=== PATIENT | female | born 2000 | race Caucasian/White ===

== ENCOUNTER 2021-02-11 11:47 | Outpatient (REF) | payer MEDICAID, SELFPAY ==
[2021-02-12 12:59] LABS: CT PCR NOT DETECTED (Not Detect.); NG PCR NOT DETECTED (Not Detect.)
[2021-02-12 13:03] LABS: BV Int Neg Control Negative (Negative); BV Int Pos Control Positive (Positive)
== END 2021-02-11 11:48 | disposition home or self-care (01) ==
LOC: HO.LAB 11:47
PROVIDERS: Visit Provider Advanced Practice Midwife
DX: Z11.3 Encounter for screening for infections with a predominantly sexual mode of transmission (principal); N89.8 Other specified noninflammatory disorders of vagina; Z20.2 Contact with and (suspected) exposure to infections with a predominantly sexual mode of transmission
CPT/HCPCS: 87480; 87491; 87510; 87591; 87660; 99212

== ENCOUNTER 2023-09-07 15:37 | Outpatient (REF) | payer SELFPAY ==
[2023-09-08 03:40] LABS: Syphilis Screen Nonreactive (Nonreactive)
[2023-09-08 03:58] LABS: ~HepC Num1 0.16 S/CO (0.00-0.79); ~Hepatitis C Antibody Nonreactive (Nonreactive)
[2023-09-10 13:43] LABS: HIV RNA PCR Qn Copies NOT DETECTED copies/mL (NOT DETECTED); HIV RNA PCR Qn Log Copies NOT DETECTED (NOT DETECTED)
== END 2023-09-07 15:38 | disposition home or self-care (01) ==
LOC: HO.HHCL 15:37
PROVIDERS: Visit Provider Nurse Practitioner Family
DX: Z11.4 Encounter for screening for human immunodeficiency virus [HIV] (principal); Z20.2 Contact with and (suspected) exposure to infections with a predominantly sexual mode of transmission
CPT/HCPCS: 36415; 86780; 86803; 87536

== ENCOUNTER 2023-10-15 17:48 | Outpatient (REF) | payer MEDICAID, SELFPAY ==
[2023-10-16 20:03] LABS: C. trachomatis RNA TMA NOT DETECTED (NOT DETECTED); Candida glabrata RNA NOT DETECTED (NOT DETECTED); Candida species RNA NOT DETECTED (NOT DETECTED); N. gonorrhoeae RNA TMA NOT DETECTED (NOT DETECTED); Trichomonas vaginalis RNA NOT DETECTED (NOT DETECTED)
[2023-10-19 19:53] LABS: N. gonorrhoeae RNA TMA, Throat NOT DETECTED
== END 2023-10-15 17:49 | disposition home or self-care (01) ==
LOC: HO.HHCLNP 17:48
PROVIDERS: Visit Provider Emergency Medicine
DX: N89.8 Other specified noninflammatory disorders of vagina (principal); J35.8 Other chronic diseases of tonsils and adenoids
CPT/HCPCS: 36415; 81513; 87481; 87491; 87591; 87661

== ENCOUNTER 2024-05-28 12:13 | Outpatient (REF) | payer MEDICAID, SELFPAY ==
[2024-05-29 18:12] LABS: Bacterial Vaginosis PCR POSITIVE (Negative); Candida Group PCR NOT DETECTED (Not Detect); Candida glab krusei PCR NOT DETECTED (Not Detect); Trichomonas vaginalis PCR NOT DETECTED (Not Detect)
[2024-05-30 02:59] LABS: CT PCR NOT DETECTED (Not Detect.); NG PCR NOT DETECTED (Not Detect.)
== END 2024-05-28 12:14 | disposition home or self-care (01) ==
LOC: HO.HHCLNP 12:13
PROVIDERS: Visit Provider Family Medicine
DX: N89.8 Other specified noninflammatory disorders of vagina (principal)
CPT/HCPCS: 0352U; 87491; 87591

== ENCOUNTER 2024-07-22 11:51 | Outpatient (REF) | payer MEDICAID, SELFPAY ==
[2024-07-22 13:12] LABS: Bacterial Vaginosis PCR POSITIVE (Negative); Candida Group PCR NOT DETECTED (Not Detect); Candida glab krusei PCR NOT DETECTED (Not Detect); Trichomonas vaginalis PCR NOT DETECTED (Not Detect)
[2024-07-22 13:42] LABS: CT PCR NOT DETECTED (Not Detect.); NG PCR NOT DETECTED (Not Detect.)
== END 2024-07-22 11:52 | disposition home or self-care (01) ==
LOC: HO.HHCLNP 11:51
PROVIDERS: Visit Provider Nurse Practitioner Primary Care
DX: N89.8 Other specified noninflammatory disorders of vagina (principal)
CPT/HCPCS: 0352U; 87491; 87591

== ENCOUNTER 2024-09-27 14:19 | Outpatient (REF) | payer MEDICAID, SELFPAY ==
--- OUTSIDE RECORDS SUMMARY | 2024-09-27 14:23 | XMS_ITS | Encounter Summary ---
Author Organization [employer] [facility] Address [address] [place] [address] [place] [address] Care Team Providers Care Bioinformatics Scientist Name Role Phone Yamilex Horn NP Primary Care Provider [phone] Encounter Details Date Type Department Care Team (Late st Contact Info) Description 05/29/2024 Telephone [facility] [address] [place] [address] Yamilex Horn NP [address] [place] [address] Social History Tobacco Use Types Packs/Day Years Used Date Smoking Tobacco: Never Passive Smoke Exposure: Never Smokeless Tobacco: Never Comments Unknown Sex and Gender Information Value Date Recorded Sex Assigned at Female 05/29/2022 10:16 AM EDT Legal Sex Female 10:16 AM EDT Gender Identity Female 05/29/2022 10:16 AM EDT Sexual Orientation Straight 05/29/2022 10 :16 AM EDT documented as of this encounter Plan of Treatment Not on file documented as of this encounter Visit Diagnoses Not on filedocumented in this encounter Care Teams Bioinformatics Scientist Relationship Specialty Start Date End Date Yamilex Horn NP [address] [place] [address] PCP - General Family Medicine 01/22/24 documented as of this encounter
--- OUTSIDE RECORDS SUMMARY | 2024-09-27 14:23 | XMS_ITS | Clinical Summary ---
Author Organization [employer] Address [address] [place] [address] 7 [place] [address] Care Team Providers Care Press Brake Operator Name Role Phone Yamilex Horn NP Primary Care Provider [phone] Allergies No known active allergies Medications metroNIDAZOLE (Flagyl) 500 MG tabletIndicatio ns:Bacterial vaginosis Take 1 tablet (500 mg) by mouth 2 times daily for 7 days. 14 tablet 09/27/2024 Active metroNIDAZOLE (Metrogel) 0.75 % vaginal gelIndications: Bacterial Vaginosis Insert one applicator-f ul (5 gram) into vagina at bedtime 2x/week for 4 weeks (8 doses total) 45 g 09/27/2024 Active Active Problems Problem Noted Date Diagnosed Date Vaginal discharge 01/05/2023 Irregular periods 01/05/2023 Migraine 04/06/2016 Resolved Problems Problem Noted Date Diagnosed Date Resolved Date Urinary tract infection symptoms 01/05/2023 05/28/2024 Screening for gonorrhea 01/05/202305/01 Encounters Date Type Department Care Team Description 09/27/2024 11:20 AM EST Office Visit [facility] [address] [address] Vega Alfonso MD Bacterial vaginosis (Primary Dx); Discharge from the vagina 09/05/2024 Telephone [facility] [address] [place] [phone] Yamilex Horn NP Nurse Triage 07/24/2024 Telephone [facility] [address] [address] Meron Bradshaw RN Results 07/21/2024 1:20 PM EST Office Visit [facility] [address] [address] Pham Steven ANP Vaginal discharge (Primary Dx) 07/21/2024 Telephone [facility] [address] [place] [address] Nicki Hurd MA from Last 3 Months Social History Tobacco Use Types Packs/Day Years Used Date Smoking Tobacco: Never Passive Smoke Exposure: Never Smokeless Tobacco: Never Comments Unknown Sex and Gender Information Value Date Recorded Sex Assigned at Female 05/29/2022 10:16 AM EDT Legal Sex Female 10:16 AM EDT Gender Identity Female 05/29/2022 10:16 AM EDT Sexual Orientation Straight 05/29/2022 10 :16 AM EDT Last Filed Vital Signs Vital Sign Reading Time Taken Comments Blood Pressure 117/80 09/27/2024 11:12 AM EST Pulse 100 09/27/2024 11:12 AM EST Temperature 36.7 ??C (98 ??F) 09/27/2024 11:12 AM EST Respiratory Rate 23 09/27/2024 11:12 AM EST Oxygen Saturation 98% 09/27/2024 11:12 AM EST Inhaled Oxygen Concentration - - Weight 57.6 kg (127 lb) 09/27/2024 11:12 AM EST Height 160 cm (5' 3 ) 09/27/2024 11:12 AM EST Body Mass Index 22.5 09/27/2024 11:12 AM EST Plan of Treatment Health Maintenance Due Date Last Done Comments Depression Screening 2000 SDOH Screening 2000 Alcohol/Substance Use Screening 2012 Family Planning (PISQ) 10/07/2015 DTaP/Tdap/Td Vaccines (7 - Td or Tdap) 03/20/2022 03/20/2012, 08/30/2005, 04/18/2002, Additional history exists COVID-19 Vaccine ( season) 2024 Influenza Vaccine (#1) 2024 , 10/18/2018, 09/28/2017, Additional history exists Pap Smear 11/09/2024 11/09/2021 Chlamydia and Gonorrhea Screening 07/21/2025 07/21/2024, 05/28/2024, 10/15/2023, Additional history exists Tobacco Screening 07/21/2025 07/21/2024 Zoster Vaccines (1 of 2) 2050 RSV Patients and Patients Aged 60 years or older (1 - 1-dose 75+ series) 10/07/2075 Hepatitis B Vaccines Completed 04/19/2001, 2000, 2000 HIB Vaccines Completed 01/08/2002, 03/31, 02/20/2001, Additional history exists Pneumococcal Vaccine: Pediatrics (0 to 5 Years) and At-Risk Patients (6 to 49) Years) Aged Out 04/08/2003, 04/19/2001, 02/20/2001, Additional history exists No longer eligible based on patient's age to complete this topic IPV Vaccines Completed 08/30/2005, 09/28, 02/20/2001, Additional history exists HPV Vaccines Completed 04/06/2016, 0 07/2014, 03/20/2012 Hepatitis A Vaccines Completed 09/28/2017, 04/06/20 16 Meningococcal Vaccine Completed 09/28/2017, 012 HIV Screening Completed 09/07/2023, 06/27/2021 Hepatitis C Screening Completed 09/07/2023, 021 RSV under 20 months Aged Out No longe r eligible based on patient's age to complete this topic Rotavirus Vaccines Aged Out No longer eligible based on patient's age to complete this topic Procedures Procedure Name Priority Date/Time Associated Diagnosis Comments POCT URINALYSIS DIPSTICK Routine 07/21/2024 1:30 PM EST Vaginal discharge CHLAMYDIA/N. GONORRHOEAE RNA, TMA, UROGENITAL Routine 07/21/2024 1:30 PM EST Vaginal discharge BACTERIAL VAGINOSIS PANEL Routine 07/21/2024 1:30 PM EST Vaginal discharge HEPATITIS C AB W/REFL TO HCV RNA, QN, PCR Routine 09/07/2023 3:39 PM EST Screening for STDs (sexually transmitted diseases) HIV 1 RNA, QUANTITATIVE REAL TIME PCR Routine 09/07/2023 3:39 PM EST Screening for STDs (sexually transmitted diseases) THINPREP IMAGING SYSTEM PAP Routine 11/09/2021 3:43 PM EDT from Last 3 Months or Most Recently Relevant to Health Maintenance Results * (ABNORMAL) Bacterial Vaginosis Panel (07/21/2024 1:30 PM EST) TRICHOMONAS VAGINALIS DETECTION BY PCR NOT DETECTED Not Detect [facility] BACTERIAL VAGINOSIS DETECTION BY PCR POSITIVE(A) Negative [facility] Comment:The BV organism targ ets of the Xpert Xpress MVP test can becommensal in women; Xpert Xpress MVP positive results forbacterial vaginosis should be considered in conjunction withother clinical and patient information to determine thedisease status. Organisms that are not detected by the XpertXpress MVP test have also been reported to be associatedwith BV and aerobic vaginitis.The Xpert Xpress MVP test performance has not been evaluatedin patients under the age of 14. TIFFANIE GROUP DETECTION BY PCR NOT DETECTED Not Detect [facility] Tiffanie glab krusei PCR NOT DETECTED Not Detect [facility] Swab Vaginal structure / Unknown 07/21/2024 1:30 PM EST 07/22/2024 11:52 AM EST [facility] LAB MICROBIOLOGY - GENERAL ORDER DIANE Final Result [facility] [address] [place] [phone] * Chlamydia/N. Gonorrhoeae RNA, TMA, Urogenitial (07/21/2024 1:30 PM EST) CT PCR NOT DETECTED Not Detect. [facility] Comment:A not detected test result does not exclude the possibilityof infection because test results can be affected byimproper specimen collection, concurrent antibiotic therapy,or the number of organisms in the specimen which may bebelow the sensitivity of the test. As with many diagnostictests, results from the Xpert CT/NG assay should beinterpreted in conjunction with other laboratory andclinical data available to the clinician.Xpert CT/NG performance has not been evaluated in patientsless than 14 years of age. The assay should not be used forthe evaluationof suspected sexual abuse or for other medico-legalindications. Additional testing is recommended in anycircumstance when false positive or false negative resultscould lead to adverse medical, social or psychologicalconsequences. NG PCR NOT DETECTED Not Detect. [facility] Comment:A not detected test result does not exclude the possibilityof infection because test results can be affected byimproper specimen collection, concurrent antibiotic therapy,or the number of organisms in the specimen which may bebelow the sensitivity of the test. As with many diagnostictests, results from the Xpert CT/NG assay should beinterpreted in conjunction with other laboratory andclinical data available to the clinician.Xpert CT/NG performance has not been evaluated in patientsless than 14 years of age. The assay should not be used forthe evaluationof suspected sexual abuse or for other medico-legalindications. Additional testing is recommended in anycircumstance when false positive or false negative resultscould lead to adverse medical, social or psychologicalconsequences. Swab (Vaginal Swab) 07/21/2024 1:30 PM EST 07/22/2024 11:52 AM EST Narrative [facility] - 07/22/2024 1:42 PM EST Vaginal [facility] LAB MICROBIOLOGY - GENERAL ORDER DIANE Final Result [facility] [address] [place] [phone] * (ABNORMAL) POCT urinalysis dipstick manually resulted (07/21/2024 1:30 PM EST) Color, UA Yellow Clarity, UA Clear Glucose, UA Negative Bilirubin, UA Negative Ketones, UA Negative Spec Grav, UA 1.010 Blood, UA Positive(A) Negative, None Detected Comment:Moderate pH, UA 5.5 Protein, UA Trace Urobilinogen, UA 0.2 Leukocytes, UA Negative Negative, Rare, Trace Nitrite, UA Negative Negative, None Detected Urine 07/21/2024 1:30 PM EST Result [facility] POINT OF CARE TEST ENTER/EDIT OR DERABLES Final Result * Hepatitis C Antibody with Reflex to HCV, RNA, Quantitative, Real-Time PCR (09/07/2023 3:39 PM EST) Hepatitis C Antibody Nonreactive Nonreactive [facility] Comment:Antibodies to HCV no t detected; does not exclude early acuteHCV infection. Blood Venous blood specimen / Unknown 09/07/2023 3:39 PM EST 09/07/2023 5:22 PM EST Result [facility] Shikha Moore [facility] LAB BLOOD ORDERABLES Final Resu lt Performing Organization Address [facility]/ZIP Co de Phone Number [facility] [address] [place] [phone] * HIV-1 RNA, Quantitative, Real-Time PCR (09/07/2023 3:39 PM EST) Pathologist [facility] HIV RNA PCR Qn Copies NOT DETECTED NOT DETECTED copies/mL [facility] HIV RNA PCR Qn Log Copies NOT DETECTED NOT DETECTED [facility] Comment:Result Units: Log co pies/mLThis test was performed using Real-Time Polymerase ChainReaction.Reportable Range: 20 copies/mL to 10,000,000 copies/mL(1.30 log copies/mL to 7.00 log copies/mL).THIS TEST WAS PERFORMED AT:[facility] [place] [phone] GREY MD Blood Venous blood specimen / Unknown 09/07/2023 3:39 PM EST 09/07/2023 5:22 PM EST Result [facility] Shikha Moore [facility] LAB BLOOD ORDERABLES Final Resu lt Performing Organization Address [facility]/ZIP Co de Phone Number [facility] [address] [place] [phone] * THINPREP TIS PAP (11/09/2021 3:43 PM EDT) Clinical Information: None given [facility] COMMENT SEE COMMENT [facility] Comment: EXPLANATORY NOTE: ? The Pap is a screening test for cervical cancer. It is ?? not a diagnostic test and is subject to false negative ?? and false positive results. It is most reliable when a ?? satisfactory sample, regularly obtained, is submitted ?? with relevant clinical findings and history, and when ?? the Pap result is evaluated along with historic and ?? current clinical information. ?? COMMENT: This Pap test has been evaluated with computer assisted technology. [facility] Call Center Consultant : SEE COMMENT [facility] Comment: MSM, CT(ASCP) CT screening location: [address] ??[phone] Interpretation/R esult: Negative for intraepithelial lesion or malignancy. [facility] LMP: NONE [facility]IVEN [facility] Prev. BX: NONE [facility]IV[facility] Prev. PAP: NONE [facility]IV[facility] SOURCE: None given [facility] Statement Of Adequacy: SEE COMMENT [facility] Comment: Satisfactory for evaluation. Endocervical/transformation zone component present. Age and/or menstrual status not provided 11/09/2021 3:43 PM EDT us Shaila BEAN LAB PATHOLOGY ORDERABLES Final Result Performing Organization Address City/State/[facility] Co de Phone Number [facility] [address] from Last 3 Months or Most Recently Relevant to Health Maintenance Insurance [employer] PARTIAL Care Teams Press Brake Operator Relationship Specialty Start Date End Date Yamilex Horn NP [address] [place] [phone] PCP - General Family Medicine 01/22/24
--- OUTSIDE RECORDS SUMMARY | 2024-09-27 14:23 | XMS_ITS | Encounter Summary ---
Author Organization [employer] Address [address] [place] [address] 7 [place] [address] Care Team Providers Care Battery Container Tester Aluminum Name Role Phone Yamilex Horn TORRI Primary Care Provider [phone] Reason for Visit * Reason Comments Vaginal Discharge Encounter Details Date Type Department Care Team ([facility] st Contact Info) Description 09/27/2024 11:20 AM EST Office Visit [facility] [address] [place] [phone] Vega Alfonso MD [address] [place], [place] [phone] Bacterial vaginosis (Primary Dx); Discharge from the vagina Social History Tobacco Use Types Packs/Day Years Used Date Smoking Tobacco: Never Passive Smoke Exposure: Never Smokeless Tobacco: Never Comments Unknown Sex and Gender Information Value Date Recorded Sex Assigned at Female 05/29/2022 10:16 AM EDT Legal Sex Female 10:16 AM EDT Gender Identity Female 05/29/2022 10:16 AM EDT Sexual Orientation Straight 05/29/2022 10 :16 AM EDT documented as of this encounter Last Filed Vital Signs Vital Sign Reading [...] Mass Index 22.5 09/27/2024 11:12 AM EST documented in this encounter Progress Notes * Vega Alfonso MD - 09/27/2024 11:20 AM EST Subjective History was provided by the patient. Malika Varma is a 23 y.o. female who presents for evaluation of vaginal discharge for 3-4 days.Reports foul-smelling, yellow liquid discharge. Denies VB or dysuria/hematuria. Denies abdominal pain or back pain. LMP was 2 weeks ago. Has a Nexplanon for BCM. Has a monogamous partner, and intermittently uses condoms. Several previous visits due to BV infection (09/2023, 04/2024, and 06/2024). Was referred to Shaila Lynne CNM for evaluation of recurrent BV infections, but missed the appointment scheduled on 08/26/2024. Denies F/C/N/V/D. Denies douching. Denies lubricant use. Objective Vitals: 09/27/24 1112 BP: 117/80 BP Location: Left arm Patient Position: Sitting BP Cuff Size: Adult Pulse: 100 Resp: 23 Temp: 98 ??F (36.7 ??C) TempSrc: Temporal SpO2: 98% Weight: 127 lb (57.6 kg) Height: 5' 3 (1.6 m) Physical Exam Vitals reviewed. Constitutional: General: She is not in acute distress. Appearance: Normal appearance. She is not ill-appearing, toxic-appearing or diaphoretic. HENT: Head: Normocephalic and atraumatic. Right Ear: External ear normal. Left Ear: External ear normal. Nose: Nose normal. Mouth/Throat: Pharynx: Oropharynx is clear. Eyes: Extraocular Movements: Extraocular movements intact. Conjunctiva/sclera: Conjunctivae normal. Pulmonary: Effort: Pulmonary effort is normal. Abdominal: General: Abdomen is flat. There is no distension. Palpations: Abdomen is soft. Tenderness: There is no abdominal tenderness. Genitourinary: Comments: Wet mount with saline/LIBIA: positive clue cells; negative hyphae; negative Trich Musculoskeletal: General: Normal range of motion. Cervical back: Neck supple. Skin: General: Skin is warm and dry. Neurological: General: No focal deficit present. Mental Status: She is alert and oriented to person, place, and time. Psychiatric: Mood and Affect: Mood normal. Behavior: Behavior normal. Malika was seen today for vaginal discharge. Diagnoses and all orders for this visit: Bacterial vaginosis (Primary) - metroNIDAZOLE (Flagyl) 500 MG tablet; Take 1 tablet (500 mg) by mouth 2 times daily for 7 days. - metroNIDAZOLE (Metrogel) 0.75 % vaginal gel; Insert one applicator-ful (5 gram) into vagina at bedtime 2x/week for 4 weeks (8 doses total) Discharge from the vagina - Cancel: POCT CHLAMYDIA, GONORRHEA, TRICHOMONAS - Bacterial Vaginosis - Chlamydia/N. Gonorrhoeae RNA, TMA, Urogenitial Patient with recurrent BV presents to [facility] Wet mount reveals Clue Cells today Previously had BV in 09/2023, 04/2024, and 06/2024 Each time she was treated with oral Metronidazole with resolution of symptoms Missed recent appointment with Shaila Lynne CNM Will treat with Metronidazole 500mg PO BID for 7 days (patient prefers the oral regimen) Given recurrent episodes, recommended a suppressive treatment with Metronidazole 0.75% gel 5 grams intravaginally 2x/week for 4 weeks Encouraged to schedule an appointment with PCP to see if extension (~4-6 months) would be indicated Currently with a Nexplanon for BCM Has a monogamous partner (has been using condoms intermittently) Would consider using condoms consistently given possible reinfection during sexual intercourse Understands the plan Indications for UC/ER use reviewed Advised to contact the clinic if persistent or worsening symptoms Will send out BV panel and CT/GC tests documented in this encounter Plan of Treatment Scheduled Orders Name Type Priority Associated Diagnoses Orde r Schedule Bacterial Vaginosis Microbiology Routine Discharge from the vagina Ordered: 09/27/2024 Chlamydia/N. Gonorrhoeae RNA, TMA, Urogenitial Microbiology Routine Discharge from the vagina Ordered: 09/27/2024 documented as of this encounter Visit Diagnoses Diagnosis Bacterial vaginosis- Primary Unspecified vaginitis and vulvovaginitis Discharge from the vagina Leukorrhea, not specified as infective documented in this encounter Care Teams Battery Container Tester Aluminum Relationship Specialty Start Date End Date Yamilex Horn NP [address] [place] [address] PCP - General Family Medicine 01/22/24 documented as of this encounter
--- OUTSIDE RECORDS SUMMARY | 2024-09-27 14:23 | XMS_ITS | Encounter Summary ---
Author Organization [employer] [facility] Address [address] [place] [address] [place] [address] Care Team Providers Care Candy Depositing Machine Operator Name Role Phone Olya Shin Primary Care Provider [phone] Shikha MooreP Primary Care Provider [phone] Yamilex Horn MANAGER OF FINANCIAL Primary Care Provider [phone] Encounter Details Date Type Department Care Team (Latest Contact Info) Description 04/23/2019 Abstract [facility] CONVERSIONS Dental, Provider, DDS Social History Tobacco Use Types Packs/Day Years Used Date Smoking Tobacco: Never Assessed Comments Unknown Sex and Gender Information Value [...] on filedocumented in this encounter Care Teams Candy Depositing Machine Operator Relationship Specialty Start Date End Date Olya Shin FNP PCP - General Family Medicine 03/29/22 12/19/22 Shikha Moore FNP [address] [place] [address] PCP - General Family Medicine 12/20/22 01/21/24 Yamilex Horn NP [address] [place] [address] PCP - General Family Medicine 01/22/24 documented as of this encounter
--- OUTSIDE RECORDS SUMMARY | 2024-09-27 14:23 | XMS_ITS | Encounter Summary ---
Author Organization [employer] Address [address] [place] [address] 7t [place] [address] Care Team Providers Care Cycle Repairer Name Role Phone Yamilex Horn BEVELER Primary Care Provider [phone] Reason for Visit * Reason Onset Date Comments Nurse Triage 09/05/2024 Encounter Details Date Type Department Care Team (Late st Contact Info) Description 09/05/2024 Telephone [facility] MEDICINE [address] [place] [address] Yamilex Horn NP [address] [place] [address] Nurse Triage Social History Tobacco Use Types Packs/Day Years Used Date Smoking Tobacco: Never Passive Smoke Exposure: Never Smokeless Tobacco: Never Comments Unknown Sex and Gender Information Value Date Recorded Sex Assigned at Female 05/29/2022 10:16 AM EDT Legal Sex Female 10:16 AM EDT Gender Identity Female 05/29/2022 10:16 AM EDT Sexual Orientation Straight 05/29/2022 10 :16 AM EDT documented as of this encounter Miscellaneous Notes * Telephone Encounter - Feli Hamilton RN - 09/05/2024 4:01 PM EST Called back pt. She states that she has been sick with vomiting mucous x 3 days. Pt has a severely stuffy nose and has congested cough which makes her vomit mucous. Nasal drainage and chest mucous isclear according to pt. She has not done a Covid or a Flu test but, has not been exposed to anyone that she knows of. Pt. States she feels warm. Does not have thermometer. Advised to use saline spray for nose and to drink lots of water for hydration. Pt is looking for note for work excuse but, advised that we cannot write notes for excuse from work without being seen. Advised pt. Of [facility] walk in hours on 09/06/24. Protocol Used: Common Cold (Adult) Protocol-Based Disposition: See in Office or Video Visit Today or Tomorrow Video visit offer not recorded Positive Triage Questions: * Sinus congestion (pressure, fullness) present > 10 days * Nasal discharge present > 10 days * Patient wants to be seen * All higher-acuity triage questions were negative Care Advice Discussed: * Nasal Washes for a Stuffy Nose * Treatment for Other Cold Symptoms * Humidifier * How to Protect Others From Getting Your Cold * Expected Course * Cough Medicines * Telephone Encounter - Celestino Cassidy - 09/05/2024 3:54 PM EST Symptoms: Cough, Vomiting Outcome: Schedule an urgent appointment (within 4 hours) or talk to a nurse or provider soon Reason: Vomited at least once in the past 8 hours The caller accepted this outcome. Contact pt at [phone] documented in this encounter Plan of Treatment Not on file documented as of this encounter Visit Diagnoses Not on filedocumented in this encounter Care Teams Cycle Repairer Relationship Specialty Start Date End Date Yamilex Horn NP [address] [place] [phone] PCP - General Family Medicine 01/22/24 documented as of this encounter
[2024-09-27 16:13] LABS: Bacterial Vaginosis PCR POSITIVE (Negative); Candida Group PCR NOT DETECTED (Not Detect); Candida glab krusei PCR NOT DETECTED (Not Detect); Trichomonas vaginalis PCR NOT DETECTED (Not Detect)
[2024-09-27 16:44] LABS: CT PCR NOT DETECTED (Not Detect.); NG PCR NOT DETECTED (Not Detect.)
== END 2024-09-27 14:20 | disposition home or self-care (01) ==
LOC: HO.HHCLNP 14:19
PROVIDERS: Visit Provider Family Medicine
DX: N89.8 Other specified noninflammatory disorders of vagina (principal)
CPT/HCPCS: 81515; 87491; 87591

== ENCOUNTER 2024-11-08 13:35 | Outpatient (REF) | payer MEDICAID, SELFPAY ==
--- OUTSIDE RECORDS SUMMARY | 2024-11-08 13:36 | XMS_ITS | Encounter Summary ---
Author Organization [employer] Address [address] [place] [address] 7 [place] [address] Care Team Providers Care Major Assembly Lineman Name Role Phone Yamilex Horn CAGER OPERATOR Primary Care Provider [phone] Reason for Visit * Reason Onset Date Comments Nurse Triage 11/07/2024 Encounter Details Date Type Department Care Team (Late st Contact Info) Description 11/07/2024 Telephone [facility]INE [address] [place] [address] Yamilex Horn NP [address] [place] [address] Nurse Triage Social History Tobacco Use Types [...] encounter Miscellaneous Notes * Telephone Encounter - Melissa Daly RN - 11/07/2024 1:16 PM EDT Call returned to Malika Varma to triage below. Reports having vaginal discharge that is yellow in color. Denies any itching. Mild odor. Per pt no urinary sx. No pelvic or flank pain. No N/V or fever. Pt advised of disposition, agrees to seek WIC for exam. Reviewed WIC operating hours and that wait times vary. Reviewed home care advise, ER precautions and reasons to call back. Protocol Used: Vaginal Discharge (Adult) Protocol-Based Disposition: See in Office or Video Visit within 3 Days Future Appointments Date Time Provider Department Center 11/10/2024 10:00 AM [facility] 11/28/2024 10:30 AM Dominga Krueger [facility] Insurance verified as active per Real Time Eligibility in [facility]. Positive Triage Questions: * Bad smelling vaginal discharge * Abnormal color vaginal discharge (i.e., yellow, green, cho) * All higher-acuity triage questions were negative Care Advice Discussed: * Reasons To Call Back - Fever or abdomen pain occur - You become worse * Telephone Encounter - Kim Kapadia - 11/07/2024 12:53 PM EDT Symptom: Vaginal Symptoms - Not Bleeding Outcome: Schedule an appointment to be seen within 24 hours Reason: Caller denied all higher acuity questions The caller accepted this outcome. Pt would like to get medication metroNIDAZOLE (Metrogel) 0.75 % vaginal gel prescribed again. documented in this encounter Plan of Treatment Upcoming Encounters Date Type Department Care Team (Late st Contact Info) Description 11/10/2024 10:00 AM EDT Office Visit [address] [address] [facility] [address] [place] [address] 11/28/2024 10:30 AM EDT Office Visit [address] [address] Dominga Krueger [address] [address] documented as of this encounter Visit Diagnoses Not on filedocumented in this encounter Care Teams Major Assembly Lineman Relationship Specialty Start Date End Date Yamilex Horn NP [address] [place] [address] PCP - General Family Medicine 01/22/24 documented as of this encounter
--- OUTSIDE RECORDS SUMMARY | 2024-11-08 13:36 | XMS_ITS | Encounter Summary ---
Author Organization [employer] Address [address] [place] [address] 7 [place] [address] Care Team Providers Care Boiling House Hand Name Role Phone Yamilex Horn TIP MENDER Primary Care Provider [phone] Reason for Visit * Reason Comments Med Refill Encounter Details Date Type Department Care Team (Late st Contact Info) Description 10/01/2024 Refill [facility] [address] [place] [address] Vega Alfonso MD [address] [place] [address] Bacterial vaginosis Social History Tobacco Use Types Packs/Day Years [...] as of this encounter Plan of Treatment Upcoming Encounters Date Type Department Care Team (Late st Contact Info) Description 11/10/2024 10:00 AM EDT Office Visit [facility] [address] [place] [address] Kimberlee Kelly [facility] 230 [place] [address] 11/28/2024 10:30 AM EDT Office Visit [facility] [address] [place] [address] Dominga Krueger PSYCHIATRIC ASSISTANT [address] [place] [address] documented as of this encounter Visit Diagnoses Diagnosis Bacterial vaginosis Unspecified vaginitis and vulvovaginitis documented in this encounter Care Teams Boiling House Hand Relationship Specialty Start Date End Date Yamilex Horn NP [address] [place] [address] PCP - General Family Medicine 01/22/24 documented as of this encounter
--- OUTSIDE RECORDS SUMMARY | 2024-11-08 13:36 | XMS_ITS | Encounter Summary ---
Author Organization [employer] Address [address] [place] [address] [place] [address] Care Team Providers Care District Representative Name Role Phone Yamilex Horn NP Primary Care Provider [phone] Encounter Details Date Type Department Care Team (Latest Contact Info) Description 11/08/2024 Travel Social History Tobacco Use Types Packs/Day Years [...] Description 11/10/2024 10:00 AM EDT Office Visit [facility] MEDICINE [address] [place] [address] [facility] 230 [place] [address] 11/28/2024 10:30 AM EDT Office Visit [facility] MEDICINE [address] [place] [address] Akilam[place]ala Dominga, [facility] [address] [place] [address] documented as of this encounter Visit Diagnoses Not on filedocumented in this encounter Care Teams District Representative Relationship Specialty Start Date End Date Yamilex Horn NP [address] [place] [address] PCP - General Family Medicine 01/22/24 documented as of this encounter
--- OUTSIDE RECORDS SUMMARY | 2024-11-08 13:36 | XMS_ITS | Clinical Summary ---
Author Organization [employer] Address [address] [place] [address] 7 [place] [address] Care Team Providers Care Video Games Storywriter Name Role Phone Yamilex Horn NP Primary Care Provider [phone] Allergies No known active allergies Medications metroNIDAZOLE (Metrogel) 0.75 % vaginal gelIndications:B acterial Vaginosis Insert one applicator-f ul (5 gram) into vagina at bedtime 2x/week for 4 weeks (8 doses total) 45 g 09/27/2024 Active fluconazole (Diflucan) 150 MG tabletIndication s:Vaginal candidiasis Take 1 tablet (150 mg) by mouth Once per day for 1 day. 1 tablet 11/08/2024 11/10/19 25 Active Active Problems Problem Noted Date Diagnosed Date Vaginal discharge 01/05/2023 Irregular periods 01/05/2023 Migraine 04/06/2016 Resolved Problems Problem Noted Date Diagnosed Date Resolved Date Urinary tract infection symptoms 01/05/2023 05/28/2024 Screening for gonorrhea 01/05/202305/01 Encounters Date Type Department Care Team Description 11/08/2024 12:00 PM EDT Office Visit [facility] [address] [place] [address] Vega Alfonso MD Vaginal candidiasis (Primary Dx) 11/08/2024 Travel 11/07/2024 Telephone [facility] [address] [place] [address] Yamilex Horn NP Nurse Triage 11/07/2024 Refill [facility] [address] [place] [address] Vega Alfonso MD Bacterial vaginosis 10/30/2024 Patient Outreach [facility] [address] [place] [address] Yamilex Horn NP Pre-visit Planning ((Unable to reach for PVP screening, LVM)) 10/10/[address] [facility] () [address] [phone] Provider, Population Health Generic 10/01/2024 Refill [facility] [address] [place] [address] Vega Alfonso MD Bacterial vaginosis 09/27/2024 11:20 AM EST Office Visit [facility] [address] [place] [address] Vega Alfonso MD Bacterial vaginosis (Primary Dx); Discharge from the vagina 09/05/2024 Telephone [facility] [address] [place] [address] Yamilex Horn NP Nurse Triage from Last 3 Months Immunizations Name Administration Dates Next Due DTaP, 5 pertussis antigens 08/30/2005,,04/19/2001,02/20,2000 HPV 9-Valent 04/06/2016 HPV, Quadrivalent 10/28/2014,03/20/2012 Hep A, ped/adol, 2 dose 09/28/2017,04/06/2016 Hep B, Adolescent or Pediatric 04/19/2001,2000,2000 HiB, unspecified 01/08/2002, 1,01/31/2001,12/19 IPV 08/30/2005, 2,02/20/2001,12/19 Influenza Injectable Quadriv alant Preservative Free IIV4 MDCK 10/18/2018 Influenza injectable quadriv alent preservative free 09/28/2017,06/12/2016,08/03/2001 MMR 08/30/2005,10/16/2001 Meningococcal MCV4O 10/08/2017,03/20/2012 Pneumococcal Conjugate PCV 7 04/08/2003, 04/19/2001,02/20/2001,12/19 Tdap 03/20/2012 Varicella 07/02/2013,04/18/2002 Social History Tobacco Use Types Packs/Day Years [...] Sign Reading Time Taken Comments Blood Pressure 113/55 11/08/2024 11:53 AM EDT Pulse 118 11/08/2024 11:53 AM EDT Temperature 36.8 ??C (98.3 ??F) 11/08/2024 11:53 AM E DT Respiratory Rate 21 11/08/2024 11:53 AM EDT Oxygen Saturation 100% 11/08/2024 11:53 AM EDT Inhaled Oxygen Concentration - - Weight 58.1 kg (128 lb) 11/08/2024 11:53 AM EDT Height 162.6 cm (5' 4 ) 11/08/2024 11:53 AM EDT Body Mass Index 21.97 11/08/2024 11:53 AM EDT Plan of Treatment Upcoming Encounters Date Type Department Care Team (Late st Contact Info) Description 11/10/2024 10:00 AM EDT Office Visit [facility] [address] [place] [address] [facility], [facility] 230 [place] [address] 11/28/2024 10:30 AM EDT Office Visit [facility] [address] [place] [address] Dominga Krueger, [facility] 230 [place] [address] Health Maintenance Due Date Last Done Comments Depression Screening 2000 SDOH Screening 2000 Alcohol/Substance Use Screening 2012 Family Planning (PISQ) 10/07/2015 DTaP/Tdap/Td Vaccines (7 - Td or Tdap) 03/20/2022 03/20/2012, 08/30/2005, 04/18/2002, Additional history exists COVID-19 Vaccine ( - 2023- season) 2024 Influenza Vaccine (#1) 2024 , 10/18/2018, 09/28/2017, Additional history exists Pap Smear 11/09/2024 11/09/2021 Tobacco Screening 11/08/2025 11/08/2024 Zoster Vaccines (1 of 2) 2050 RSV [...] Additional history exists HPV Vaccines Completed 04/06/2016, 04/0 07/2014, 03/20/2012 Hepatitis A Vaccines Completed 09/28/2017, 04/06/20 16 Meningococcal Vaccine Completed 10/08/2017 , 09/28/2017, 03/20/2012 HIV Screening Completed 09/07/2023, 06/27/2021 Hepatitis C Screening Completed 09/07/2023, 021 RSV under 20 months Aged Out No longe r eligible based on patient's age to complete this topic Rotavirus Vaccines Aged Out No longer eligible based on patient's age to complete this topic Procedures Procedure Name Priority Date/Time Associated Diagnosis Comments CHLAMYDIA/N. GONORRHOEAE RNA, TMA, UROGENITAL Routine 09/27/2024 11:17 AM EST Discharge from the vagina BACTERIAL VAGINOSIS PANEL Routine 09/27/2024 11:17 AM EST Discharge from the vagina HEPATITIS C AB W/REFL TO HCV RNA, QN, PCR Routine 09/07/2023 3:39 PM EST Screening for STDs (sexually transmitted diseases) HIV 1 RNA, QUANTITATIVE REAL TIME PCR Routine 09/07/2023 3:39 PM EST Screening for STDs (sexually transmitted diseases) THINPREP IMAGING SYSTEM PAP Routine 11/09/2021 3:43 PM EDT from Last 3 Months or Most Recently Relevant to Health Maintenance Results * (ABNORMAL) Bacterial Vaginosis (09/27/2024 11:17 AM EST) TRICHOMONAS VAGINALIS DETECTION BY PCR NOT DETECTED Not Detect [facility] BACTERIAL VAGINOSIS DETECTION BY PCR POSITIVE(A) Negative [facility] Comment:The BV organism targ ets of [...] DETECTION BY PCR NOT DETECTED Not Detect [facility] Tiffanie glab krusei PCR NOT DETECTED Not Detect [facility] Swab Vaginal structure / Unknown 09/27/2024 11:17 AM EST 09/27/2024 2:21 PM EST us Vega Alfonso MD LAB MICROBIOLOGY - GENERAL ORDER DIANE Final Result [facility] [address] [place] [phone] * Chlamydia/N. Gonorrhoeae RNA, TMA, Urogenitial (09/27/2024 11:17 AM EST) CT PCR NOT DETECTED Not Detect. [facility] Comment:A not detected test result does [...] psychologicalconsequences. NG PCR NOT DETECTED Not Detect. [facility] Comment:A not detected test result does [...] to adverse medical, social or psychologicalconsequences. Swab Vaginal structure / Unknown 09/27/2024 11:17 AM EST 09/27/2024 2:20 PM EST Narrative [facility] - 09/27/2024 4:44 PM EST Vaginal us Vega Alfonso MD LAB MICROBIOLOGY - GENERAL ORDER DIANE Final Result [facility] [address] [place] [phone] * Hepatitis C Antibody with Reflex to HCV, RNA, Quantitative, Real-Time PCR (09/07/2023 3:39 PM EST) Hepatitis C Antibody Nonreactive Nonreactive [facility] Comment:Antibodies to HCV no t detected; does not exclude early acuteHCV infection. Blood Venous blood specimen / Unknown 09/07/2023 3:39 PM EST 09/07/2023 5:22 PM EST [facility] [place] LAB BLOOD ORDERABLES Final Resu lt Performing Organization Address [facility]/ZIP Co de Phone Number [facility] [address] [place] [phone] * HIV-1 RNA, Quantitative, Real-Time PCR (09/07/2023 3:39 PM EST) HIV RNA PCR Qn Copies NOT DETECTED NOT DETECTED copies/mL [facility] HIV RNA PCR Qn Log Copies NOT DETECTED NOT DETECTED [facility] Comment:Result Units: Log co pies/mLThis test was performed using Real-Time Polymerase ChainReaction.Reportable Range: 20 copies/mL to 10,000,000 copies/mL(1.30 log copies/mL to 7.00 log copies/mL).THIS TEST WAS PERFORMED AT:[id number] [place] [id number] GREY MD Blood Venous blood specimen / Unknown 09/07/2023 3:39 PM EST 09/07/2023 5:22 PM EST Result [facility] LAB BLOOD ORDERABLES Final Resu lt Performing Organization Address [facility] Co de Phone Number [facility] [address] [place] [phone] * THINPREP TIS PAP (11/09/2021 3:43 PM EDT) Clinical Information: None given [facility] COMMENT SEE COMMENT [facility] [...] has been evaluated with computer assisted technology. [facility] Provider Engagement Executive : SEE COMMENT [facility] Comment: MSM, CT(ASCP) CT screening location: [address] ??[address] Interpretation/R esult: Negative for intraepithelial lesion or malignancy. [facility] LMP: NONE [facility]IVEN [facility] Prev. BX: NONE [facility]IV[facility] Prev. PAP: NONE [facility]IV[facility] SOURCE: None given [facility] Statement Of Adequacy: SEE COMMENT [facility] Comment: Satisfactory for evaluation. Endocervical/transformation zone component present. Age and/or menstrual status not provided 11/09/2021 3:43 PM EDT us Shaila BEAN LAB PATHOLOGY ORDERABLES Final Result [facility] [address] from Last 3 Months or Most Recently Relevant to Health Maintenance Insurance [id number] HSN PARTIAL Care Teams Video Games Storywriter Relationship Specialty Start Date End Date Yamilex Horn NP [address] [place] [phone] PCP - General Family Medicine 01/22/24
--- OUTSIDE RECORDS SUMMARY | 2024-11-08 13:36 | XMS_ITS | Encounter Summary ---
Author Organization [employer] Address [address] [place] [address] 7 [place] [address] Care Team Providers Care School Athletic Director Name Role Phone Yamilex Horn BOTTOM LINER Primary Care Provider [phone] Reason for Visit * Reason Comments Med Refill Encounter Details Date Type Department Care Team (Late st Contact Info) Description 11/07/2024 Refill [facility] [address] [place] [phone] Vega Alfonso MD [address] [place] [address] Bacterial vaginosis Social History Tobacco Use Types [...] Description 11/10/2024 10:00 AM EDT Office Visit [facility] [address] [place] [address] Kimberlee Kelly [facility] [address] [place] [address] 11/28/2024 10:30 AM EDT Office Visit [facility] [address] [place] [address] Dominga Krueger CANDY DECORATOR [address] [place] [address] documented as of this encounter Visit Diagnoses Diagnosis Bacterial vaginosis Unspecified vaginitis and vulvovaginitis documented in this encounter Care Teams School Athletic Director Relationship Specialty Start Date End Date Yamilex Horn NP [address] [place] [address] PCP - General Family Medicine 01/22/24 documented as of this encounter
--- OUTSIDE RECORDS SUMMARY | 2024-11-08 13:36 | XMS_ITS | Encounter Summary ---
Author Organization [employer] Address [address] [place] [address] 7 [place] [address] Care Team Providers Care Toggler Name Role Phone Olya Shin SCHOOL PHOTOGRAPH EDITOR Primary Care Provider [phone] Shikha Moore SCHOOL PHOTOGRAPH EDITOR Primary Care Provider [phone] Yamilex Horn SIGNALS INTELLIGENCE ANALYSIS MANAGER Primary Care Provider [phone] Encounter Details Date Type Department Care Team (Latest Contact Info) Description 04/23/2019 Abstract [facility] CONVERSIONS Dental, Provider, DDS Social History [...] Description 11/10/2024 10:00 AM EDT Office Visit [facility] [address] [place] [address] Kimberlee Kelly [address] [address] 11/28/2024 10:30 AM EDT Office Visit [facility] [address] [place] [address] Dominga Krueger [address] [address] documented as of this encounter Visit Diagnoses Not on filedocumented in this encounter Care Teams Toggler Relationship Specialty Start Date End Date Olya Shin FNP PCP - General Family Medicine 03/29/22 12/19/22 Shikha Moore FNP [address] [place] [address] PCP - General Family Medicine 12/20/22 01/21/24 Yamilex Horn NP 230 [place] [address] PCP - General Family Medicine 01/22/24 documented as of this encounter
--- OUTSIDE RECORDS SUMMARY | 2024-11-08 13:36 | XMS_ITS | Encounter Summary ---
Author Organization [employer] [facility] Address [address] [place] [address] [place] [address] Care Team Providers Care Registered Radiographer Name Role Phone Yamilex Horn NP Primary Care Provider [phone] Encounter Details Date Type Department Care Team (Late st Contact Info) Description 05/29/2024 Telephone [facility] MEDICINE [address] [place] [address] Yamilex Horn NP [address] [place] [address] Social History Tobacco Use Types Packs/Day Years [...] Description 11/10/2024 10:00 AM EDT Office Visit [address] [address] [place] [facility] [address] [place] [address] 11/28/2024 10:30 AM EDT Office Visit [address] [address] Dominga Krueger [facility] [address] [place] [address] documented as of this encounter Visit Diagnoses Not on filedocumented in this encounter Care Teams Registered Radiographer Relationship Specialty Start Date End Date Yamilex Horn NP [address] [place] [address] PCP - General Family Medicine 01/22/24 documented as of this encounter
[2024-11-09 11:57] LABS: Bacterial Vaginosis PCR POSITIVE (Negative); Candida Group PCR NOT DETECTED (Not Detect); Candida glab krusei PCR NOT DETECTED (Not Detect); Trichomonas vaginalis PCR NOT DETECTED (Not Detect)
[2024-11-09 12:27] LABS: CT PCR NOT DETECTED (Not Detect.); NG PCR NOT DETECTED (Not Detect.)
== END 2024-11-08 13:36 | disposition home or self-care (01) ==
LOC: HO.HHCLNP 13:35
PROVIDERS: Visit Provider Family Medicine
DX: B37.31 Acute candidiasis of vulva and vagina (principal)
CPT/HCPCS: 81515; 87491; 87591

== ENCOUNTER 2025-01-27 13:15 | Outpatient (REF) | payer MEDICAID, SELFPAY ==
--- OUTSIDE RECORDS SUMMARY | 2025-01-27 13:00 | XMS_ITS | Encounter Summary ---
Author Organization [employer] Address [address] [place] [address] 7t [place] [address] Care Team Providers Care Credit Operations Processor Name Role Phone Yamilex Horn REAL ESTATE PROCESSOR Primary Care Provider [phone] Reason for Visit * Reason Comments Vaginal Discharge Encounter Details Date Type Department Care Team ([facility] st Contact Info) Description 01/27/2025 1:00 PM EDT Office Visit [facility] [address] [place] [address] [phone] Shawna Levy MD [address] [place], [place] [phone] Vaginal discharge Social History Tobacco Use Types Packs/Day Years Used Date Smoking Tobacco: Never Passive Smoke Exposure: Never Smokeless Tobacco: Never Depression Answer Date Recorded Patient Health Questionnaire-9 Score 0 11/10/2024 Patient Health Questionnaire-9 Score 0 11/10/2024 Last PHQ-9: Questionnaire Data Not on file 0 11/10/2024 Housing Stability Answer Date Recorded What is your housing situation today? I have kiana guzman 11/10/[address] you li ve. Do you have problems with any of the following? None of the above 11/10/2024 Food Insecurity Answer Date Recorded Within the past 12 months, y ou worried that your food would run out before you got money to buy more: Never True 11/10/2024 Within the past 12 months,th e food you bought just didn't last and you didn't have enough money to get more: Never True Transportation Answer Date Recorded In the past 12 months, has l ack of transportation kept you from medical appts, meetings, work or from getting things needed for daily living? No 11/10/2024 Utilities Answer Date Recorded In the past 12 months, has t he electric, gas, oil or water company threatened to shut off services in your home? No 11/10/2024 Depression Answer Date Recorded Patient Health Questionnaire-2 Score 0 11/10/2024 Internet Access Answer Date Recorded Internet Access Q1 Yes 11/10/2024 Internet Access Q2 Not on file 11/10/2024 Comments No Sex and Gender Information Value Date Recorded Sex Assigned at Female 05/29/2022 10:16 AM EDT Legal Sex Female 10:16 AM EDT Gender Identity Female 05/29/2022 10:16 AM EDT Sexual Orientation Straight 05/29/2022 10 :16 AM EDT documented as of this encounter Last Filed Vital Signs Vital Sign Reading Time Taken Comments Blood Pressure 126/60 01/27/2025 12:55 PM EDT Pulse 81 01/27/2025 12:55 PM EDT Temperature 36.6 C (97.8 F) 01/27/2025 12:55 PM EDT Respiratory Rate 16 01/27/2025 12:55 PM EDT Oxygen Saturation - - Inhaled Oxygen Concentration - - Weight 59 kg (130 lb) 01/27/2025 12:55 PM EDT Height 154.9 cm (5' 1 ) 01/27/2025 12:55 PM EDT Body Mass Index 24.56 01/27/2025 12:55 PM EDT documented in this encounter Progress Notes * Shawna Boone MD - 01/27/2025 1:00 PM EDT SUBJECTIVE: Malika Varma is a 24 y.o. year old female who presents for vaginal discharge . Acute Concerns: Patient reports vaginal discharge of 1 week, she has h/o recurrent BV because of this she started to take again her boric acid for the past 3 days, patient tells me she has a new partner, she wears condoms all the time but will like to be tested for STIs Social History Social History Narrative Not on file Problem List[1] Vaginal discharge Irregular periods Migraine Family History[2] Review of Systems Constitutional: Negative. HENT: Negative. Respiratory: Negative. Cardiovascular: Negative. Genitourinary: Positive for vaginal discharge. Negative for decreased urine volume, difficulty urinating, dyspareunia, dysuria, enuresis, flank pain, frequency, genital sores, hematuria, menstrual problem, pelvic pain, urgency, vaginal bleeding and vaginal pain. OBJECTIVE: Vitals: 01/27/25 1255 BP: 126/60 BP Location: Left arm Patient Position: Sitting BP Cuff Size: Adult Pulse: 81 Resp: 16 Temp: 97.8 ??F (36.6 ??C) TempSrc: Temporal Weight: 130 lb (59 kg) Height: 5' 1 (1.549 m) Physical Exam Constitutional: Appearance: Normal appearance. Cardiovascular: Rate and Rhythm: Normal rate and regular rhythm. Pulmonary: Effort: Pulmonary effort is normal. Breath sounds: Normal breath sounds. Abdominal: General: Abdomen is flat. Palpations: Abdomen is soft. Musculoskeletal: Right lower leg: No edema. Left lower leg: No edema. Neurological: Mental Status: She is alert. Follow Up: No follow-ups on file. Medications Ordered Prior to Encounter[3] Problem List Items Addressed This Visit Vaginal discharge In light of her history of recurrent BV, I will treat her empirically with metronidazole Labs ordered patient will be contacted with results Relevant Medications metroNIDAZOLE (Flagyl) 500 MG tablet Other Relevant Orders Bacterial Vaginosis Chlamydia/N. Gonorrhoeae RNA, TMA, Urogenitial POCT urinalysis dipstick manually resulted (Completed) RPR (Monitor) with Reflex to Titer HIV-1/2 Antigen and Antibodies, Fourth Generation, with Reflexes Hepatitis A,B,C Profile [1] Patient Active Problem List Diagnosis Vaginal discharge Irregular periods Migraine [2] No family history on file. [3] Current Outpatient Medications on File Prior to Visit Medication Sig Dispense Refill hydrOXYzine HCl (Atarax) 25 MG tablet Take 1-2 tablets by oral route as needed up to four times daily for anxiety 90 tablet 1 No current facility-administered medications on file prior to visit. documented in this encounter Miscellaneous Notes * Assessment & Plan Note - Shawna Boone MD - 01/27/2025 1:19 PM EDT Associated Problem(s): Vaginal discharge In light of her history of recurrent BV, I will treat her empirically with metronidazole Labs ordered patient will be contacted with results documented in this encounter Plan of Treatment Scheduled Orders Name Type Priority Associated Diagnoses Orde r Schedule Bacterial Vaginosis Microbiology Routine Vaginal discharge Ordered: 01/27/2025 Chlamydia/N. Gonorrhoeae RNA, TMA, Urogenitial Microbiology Routine Vaginal discharge Ordered: 01/27/2025 RPR (Monitor) with Reflex to Titer Lab Routine Vaginal discharge Expected: 01/27/2025, Expires: 01/27/2026 HIV-1/2 Antigen and Antibodies, Fourth Generation, with Reflexes Lab Routine Vaginal discharge Expected: 01/27/2025 (Approximate), Expires: 01/27/2026 Hepatitis A,B,C Profile Lab Routine Vaginal discharge Expected: 01/27/2025, Expires: 01/27/2026 documented as of this encounter Procedures Procedure Name Priority Date/Time Associated Diagnosis Comments POCT URINALYSIS DIPSTICK Routine 01/27/2025 1:08 PM EDT Vaginal discharge documented in this encounter Results * (ABNORMAL) POCT urinalysis dipstick manually resulted (01/27/2025 1:08 PM EDT) Color, UA Yellow Clarity, UA Clear Glucose, UA Negative Bilirubin, UA Negative Ketones, UA Negative Spec Grav, UA 1.010 Blood, UA Positive(A) Negative, None Detected Comment:Moderate pH, UA 7.0 Protein, UA Negative Urobilinogen, UA 0.2 Leukocytes, UA Negative Negative, Rare, Trace Nitrite, UA Negative Negative, None Detected Appearance, UA OK Urine 01/27/2025 1:08 PM EDT Shawna Boone MD POINT OF CARE TEST EN TER/EDIT ORDERABLES Final Result documented in this encounter Visit Diagnoses Diagnosis Vaginal discharge Leukorrhea, not specified as infective documented in this encounter Additional Health Concerns Assessment Noted Time PHQ-9 Depression Total Score: 0 11/11/19 25 10:10 AM EDT documented as of this encounter Care Teams Credit Operations Processor Relationship Specialty Start Date End Date Yamilex Horn NP [address] [place] [phone] PCP - General Family Medicine 01/22/24 documented as of this encounter
[2025-01-28 08:20] LABS: HBS Num1 0.88 mIU/mL (0-7.99); HBc Num1 0.12 S/CO (0.00-0.79); HBsAGNum1 0.35 S/CO (0.00-0.99); HIV Num 1 0.06 S/CO (0.00-0.99); Hepatitis A Antibody IgM 0.28 Index (0-0.79); Hepatitis B Surface Antigen Negative (Negative); ~HepC Num1 0.17 S/CO (0.00-0.79); ~Hepatitis A Antibody IgM Nonreactive (Nonreactive); ~Hepatitis B Surface Antibody NONREACTIVE (Nonreactive); ~Hepatitis C Antibody Nonreactive (Nonreactive)
[2025-01-28 13:41] LABS: CT PCR NOT DETECTED (Not Detect.); NG PCR NOT DETECTED (Not Detect.)
[2025-01-28 14:12] LABS: Bacterial Vaginosis PCR POSITIVE (Negative); Candida Group PCR NOT DETECTED (Not Detect); Candida glab krusei PCR NOT DETECTED (Not Detect); Trichomonas vaginalis PCR NOT DETECTED (Not Detect)
== END 2025-01-27 13:16 | disposition home or self-care (01) ==
LOC: HO.HHCL 13:15
PROVIDERS: PCP Internal Medicine; Visit Provider Internal Medicine
DX: N89.8 Other specified noninflammatory disorders of vagina (principal)
CPT/HCPCS: 36415; 81515; 86592; 86704; 86706; 86709; 86803; 87340; 87389; 87491; 87591

== ENCOUNTER 2025-04-15 10:42 | Outpatient (REF) | payer MEDICAID, SELFPAY ==
--- OUTSIDE RECORDS SUMMARY | 2025-04-15 10:00 | XMS_ITS | Encounter Summary ---
Author Organization [employer] Address [address] [facility] 7t [place] [address] Care Team Providers Care Certified Nurse Aide Name Role Phone Yamilex Horn INTER COM SERVICER Primary Care Provider Reason for Visit * Reason Comments re Encounter Details Date Type Department Care Team ([facility] st Contact Info) Description 04/15/2025 10:00 AM EDT Office Visit [facility] [address] [place], [place] [phone] Shaila Lynne CNM [address] [place], [place] [phone] Vaginal discharge (Primary Dx); Routine cervical smear; Screening examination for venereal disease; Abnormal uterine bleeding (AUB) Social History Tobacco Use Types Packs/Day Years Used Date Smoking Tobacco: Never Passive Smoke Exposure: Never Smokeless Tobacco: Never Depression Answer Date Recorded Patient Health Questionnaire-9 Score 11 04/15/2025 Patient Health Questionnaire-9 Score 11 04/15/2025 Last PHQ-9: Questionnaire Data Not on file 0 04/15/2025 Housing Stability Answer Date Recorded What is [...] Answer Date Recorded Patient Health Questionnaire-2 Score 3 04/15/2025 Internet Access Answer Date Recorded Internet Access Q1 Yes 11/10/2024 Internet Access Q2 Not on file 11/10/2024 Comments No Intention Date Recorded No desire to become (finding) 0 04/15/2025 Sex and Gender Information Value Date Recorded Sex Assigned at Female 05/29/2022 10:16 AM EDT Legal Sex Female 10:16 AM EDT Gender Identity Female 05/29/2022 10:16 AM EDT Sexual Orientation Straight 05/29/2022 10 :16 AM EDT documented as of this encounter Last Filed Vital Signs Vital Sign Reading Time Taken Comments Blood Pressure 92/54 04/15/2025 10:12 AM EDT Pulse 70 04/15/2025 10:12 AM EDT Temperature 37.3 C (99.1 F) 04/15/2025 10:12 AM EDT Respiratory Rate 14 04/15/2025 10:12 AM EDT Oxygen Saturation 97% 04/15/2025 10:12 AM EDT Inhaled Oxygen Concentration - - Weight 59.4 kg (131 lb) 04/15/2025 10:12 AM EDT Height - - Body Mass Index 24.75 01/27/2025 12:55 PM EDT documented in this encounter Functional Status * Over the past 2 weeks, how often have you been bothered by any of the following problems? Question Answer Date of Assessment Author Patient Health Questionnaire -2 Score 3 04/15/2025 10:47 AM EDT Ashley Medina MA * Little interest or pleasure in doing things Answer Date of Assessment Author Several days 04/15/2025 10:47 AM EDT Ashley Medina MA * Feeling down, depressed, or hopeless Answer Date of Assessment Author More than half the days 04/15/2025 10:47 AM EDT Ashley Medina MA * Trouble falling or staying asleep, or sleeping too much Answer Date of Assessment Author Nearly every day 04/15/2025 10:47 AM EDT Ashley Medina MA * Feeling tired or having little energy Answer Date of Assessment Author More than half the days 04/15/2025 10:47 AM Ashley Casey MA * Poor appetite or overeating Answer Date of Assessment Author Several days 04/15/2025 10:47 AM Ashley Casey MA * Feeling bad about yourself - or that you are a failure or have let yourself or your family down Answer Date of Assessment Author Not at all 04/15/2025 10:47 AM Ashley Casey MA * Trouble concentrating on things, such as reading the newspaper or watching television Answer Date of Assessment Author Not at all 04/15/2025 10:47 AM Ashley Casey MA * Moving or speaking so slowly that other people could have noticed? Or the opposite - being so fidgety or restless that you have been moving around a lot more than usual. Answer Date of Assessment Author More than half the days 04/15/2025 10:47 AM Ashley Casey MA * Thoughts that you would be better off or hurting yourself in some way Answer Date of Assessment Author Not at all 04/15/2025 10:47 AM Ashley Casey MA * Patient Health Questionnaire-9 Score Answer Date of Assessment Author 11 04/15/2025 10:47 AM Ashley Casey MA * Over the last 2 weeks, how often have you been bothered by any of the following problems? Question Answer Date of Assessment Author Feeling nervous, anxious, or on edge 1 04/15/2025 10:48 AM Ashley Casey MA Not being able to stop or co ntrol worrying 1 04/15/2025 10:48 AM Ashley Casey MA Worrying too much about diff erent things 1 04/15/2025 10:48 AM Ashley Casey MA Trouble relaxing 2 04/15/2025 10:48 AM Ashley Casey MA Being so restless that it is hard to sit still 2 04/15/2025 10:48 AM Ashley Casey MA Becoming easily annoyed or irritable 3 04/15/2025 10:48 AM Ashley Casey MA Feeling afraid as if somethi ng awful might happen 0 04/15/2025 10:48 AM Ashley Casey MA JOHN-7 Total Score 10 04/15/2025 10:48 AM Ashley Casey MA documented as of this encounter Progress Notes * Shaila Lynne, CNM - 04/15/2025 10:00 AM EDT Subjective Patient ID: Malika Varma is a 24 y.o. female who presents for vaginal symptoms Treated for bacterial vaginosis 01/2025, 10/2024, , 06/2024, 04/2024. Thinks she has bacterial vaginosis again. Notes some discharge. LMP early 03/2025, has been bleeding lightly since then which is atypical for her with Nexplanon. Gonorrhea/Chlamydia/trichomonas, HIV, syphilis and Hep C neg 01/2025. Pap NIL 10/2021. 2 AMAB partners in past 3 months. Oral/vaginal sex. Would like full STI testing today. Would like pap today. Nexplanon inserted 09/2021. Happy with method, but notes new onset prolonged bleeding. Open to treating bleeding. Review of Systems Genitourinary: Positive for vaginal bleeding and vaginal discharge. Negative for dyspareunia, dysuria, menstrual problem, pelvic pain and vaginal pain. Objective BP 92/54 (BP Location: Left arm, Patient Position: Sitting, BP Cuff Size: Adult) Pulse 70 Temp 99.1 ??F (37.3 ??C) (Oral) Resp 14 Wt 131 lb (59.4 kg) LMP 04/13/2025 SpO2 97% BMI 24.75 kg/m?? Physical Exam Medical Record Librarians Teacher present: declines tenter frame back tender. Constitutional: Appearance: Normal appearance. Genitourinary: General: Normal vulva. Labia: Right: No rash, tenderness, lesion or injury. Left: No rash, tenderness, lesion or injury. Vagina: Normal. No signs of injury and foreign body. No vaginal discharge, erythema, tenderness, bleeding or lesions. Cervix: No cervical motion tenderness, discharge, friability, lesion, erythema, cervical bleeding or eversion. Uterus: Normal. Not enlarged and not tender. Adnexa: Right adnexa normal and left adnexa normal. Right: No mass, tenderness or fullness. Left: No mass, tenderness or fullness. Comments: Menses noted Skin: Comments: Nexplanon palpable in left arm Neurological: Mental Status: She is alert. Psychiatric: Mood and Affect: Mood normal. Behavior: Behavior normal. Assessment/Plan Diagnoses and all orders for this visit: Vaginal discharge - POCT fern test, vaginal fluid manually resulted No obvious vaginitis, but limited due to menses. Will treat bacterial vaginosis/vulvovaginal candidiasis if noted on pap. If bacterial vaginosis, will offer suppressive treatment and discuss possiblebenefits of partner treatment. Routine cervical smear - Pap Smear Pap today. Repeat 3 years if normal. Screening examination for venereal disease - STI testing add on (NG, CT, Trich) - HIV-1/2 Antigen and Antibodies, Fourth Generation, with Reflexes; Future - Syphilis Screen; Future Oral Gonorrhea/Chlamydia, pap based Gonorrhea/Chlamydia/trichomonas and serum labs today. Will contact with results. Hep B non immune, noted after visit. Will advise vaccine when we contact with results. Abnormal uterine bleeding (AUB) Offered trial of NSAIDs for AUB with Nexplanon. Let me know if not helpful. Could consider 6wk low dose oral contraceptive pill if no contraindications. May remove implant at any time if not happy with method. Other orders - ibuprofen 600 MG tablet; Take 1 tablet (600 mg) by mouth 3 times daily for 21 days. Take one tablet with food every 8 hours x 7 days documented in this encounter Plan of Treatment Scheduled Orders Name Type Priority Associated Diagnoses Order Schedule Pap Smear Pathology and Cytology Routine Routine cervical smear Ordered: 04/15/2025 STI testing add on (NG, CT, Trich) Pathology and Cytology Routine Screening examination for venereal disease Ordered: 04/15/2025 HIV-1/2 Antigen and Antibodies, Fourth Generation, with Reflexes Lab Routine Screening examination for venereal disease Expected: 04/15/2025 (Approximate), Expires: 04/15/2026 Syphilis Screen Lab Routine Screening examination for venereal disease Expected: 04/15/2025 (Approximate), Expires: 04/15/2026 Chlamydia/N. Gonorrhoeae RNA, TMA, Throat Microbiology Routine Screening examination for venereal disease Expected: 04/15/2025 (Approximate), Expires: 04/15/2026 documented as of this encounter Procedures Procedure Name Priority Date/Time Associated Diagnosis Comments POCT WET MOUNT/LIBIA Routine 04/15/2025 10 :46 AM EDT Vaginal discharge documented in this encounter Results * POCT fern test, vaginal fluid manually resulted (04/15/2025 10:46 AM EDT) LIBIA Prep Negative Comment:pH 6, numerous rbc, limited due to that. Vaginal Fluid Vaginal structure / Unknown 04/15/2025 10:46 AM EDT Shaila Lynne CNM POINT OF CARE TEST ENTER/ EDIT ORDERABLES Final Result documented in this encounter Visit Diagnoses Diagnosis Vaginal discharge- Primary Leukorrhea, not specified as infective Routine cervical smear Screening for malignant neoplasm of the cervix Screening examination for venereal disease Abnormal uterine bleeding (AUB) documented in this encounter Additional Health Concerns Assessment Noted Time PHQ-9 Depression Total Score: 11 025 10:47 AM EDT documented as of this encounter Care Teams Certified Nurse Aide Relationship Specialty Start Date End Date Yamilex Horn NP [address] [place] [id number] PCP - General Family Medicine 01/22/24 documented as of this encounter
--- OUTSIDE RECORDS SUMMARY | 2025-04-15 13:31 | XMS_ITS | Encounter Summary ---
Author Organization [facility] Address [address] [place] [address] 7 h Floor [place] [phone] Care Team Providers Care Report Programmer Name Role Phone Yamilex Horn NP Primary Care Provider [phone] Encounter Details Date Type Department Care Team (Late st Contact Info) Description 05/29/2024 Telephone [facility] MEDICINE [address] [place] [address] Yamilex Horn NP [address] [place] [address] Social History Tobacco Use Types Packs/Day Years [...] on filedocumented in this encounter Care Teams Report Programmer Relationship Specialty Start Date End Date Yamilex Horn NP [address] [place] [address] PCP - General Family Medicine 01/22/24 documented as of this encounter
--- OUTSIDE RECORDS SUMMARY | 2025-04-15 13:31 | XMS_ITS | Encounter Summary ---
Author Organization [employer] Address [address] [facility] 7t [place] [address] Care Team Providers Care Stunt Performer Name Role Phone Yamilex Horn TEMPERATURE INSPECTOR Primary Care Provider [phone] Reason for Visit * Reason Comments Med Refill Encounter Details Date Type Department Care Team (Late st Contact Info) Description 11/07/2024 Refill [facility] [address] [place] [address] [phone] Vega Alfonso MD [address] [place], [place] [phone] Bacterial vaginosis Social History Tobacco Use Types [...] Access Q2 Not on file 11/10/2024 Comments Unknown Sex and Gender Information Value Date Recorded Sex Assigned at Female 05/29/2022 10:16 AM EDT Legal Sex Female 10:16 AM EDT Gender Identity Female 05/29/2022 10:16 AM EDT Sexual Orientation Straight 05/29/2022 10 :16 AM EDT documented as of this encounter Functional Status * Over the past 2 weeks, how often have you been bothered by any of the following problems? Question Answer Date of Assessment Author Patient Health Questionnaire-2 Score 0 11/10/2024 10:10 AM EDT Marleni Russell MA * Little interest or pleasure in doing things Answer Date of Assessment Author Not at all 11/10/2024 10:10 AM EDT Marleni Ibarra MA * Feeling down, depressed, or hopeless Answer Date of Assessment Author Not at all 11/10/2024 10:10 AM EDT Marleni Ibarra MA * Trouble falling or staying asleep, or sleeping too much Answer Date of Assessment Author Not at all 11/10/2024 10:10 AM EDT Marleni Ibarra MA * Feeling tired or having little energy Answer Date of Assessment Author Not at all 11/10/2024 10:10 AM EDT Marleni Ibarra MA * Poor appetite or overeating Answer Date of Assessment Author Not at all 11/10/2024 10:10 AM EDT Marleni Ibarra MA * Feeling bad about yourself - or that you are a failure or have let yourself or your family down Answer Date of Assessment Author Not at all 11/10/2024 10:10 AM EDT Marleni Ibarra MA * Trouble concentrating on things, such as reading the newspaper or watching television Answer Date of Assessment Author Not at all 11/10/2024 10:10 AM EDT Marleni Ibarra MA * Moving or speaking so slowly that other people could have noticed? Or the opposite - being so fidgety or restless that you have been moving around a lot more than usual. Answer Date of Assessment Author Not at all 11/10/2024 10:10 AM EDT Marleni Ibarra MA * Thoughts that you would be better off or hurting yourself in some way Answer Date of Assessment Author Not at all 11/10/2024 10:10 AM EDT Marleni Ibarra MA * Patient Health Questionnaire-9 Score Answer Date of Assessment Author 0 11/10/2024 10:10 AM EDT Marleni Ibarra MA documented as of this encounter Plan of Treatment Not on file documented as of this encounter Visit Diagnoses Diagnosis Bacterial vaginosis Unspecified vaginitis and vulvovaginitis documented in this encounter Care Teams Stunt Performer Relationship Specialty Start Date End Date Yamilex Horn NP [address] [place] [phone] PCP - General Family Medicine 01/22/24 documented as of this encounter
--- OUTSIDE RECORDS SUMMARY | 2025-04-15 13:31 | XMS_ITS | Clinical Summary ---
Author Organization [employer] Address [address] [facility] 7t [place] [address] Care Team Providers Care Floral Associate Name Role Phone Yamilex Horn TORRI Primary Care Provider [phone] Allergies No known active allergies Medications hydrOXYzine HCl (Atarax) 25 MG tabletIndicatio ns:Difficulty sleeping Take 1-2 tablets by oral route as needed up to four times daily for anxiety 90 tablet 1 11/10/2024 Active ibuprofen 600 MG tablet Take 1 tablet (600 mg) by mouth 3 times daily for 21 days. 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, I will treat her empirically with metronidazole Labs ordered patient will be contacted with results Irregular periods 01/05/2023 Migraine 04/06/2016 Resolved Problems Problem Noted Date Diagnosed Date Resolved Date Urinary tract infection symptoms 01/05/2023 05/28/2024 Screening for gonorrhea 01/05/202305/01 Encounters Date Type Department Care Team Description 04/15/2025 10:00 AM EDT Office Visit [facility] [address] [place] [phone] Shaila Lynne CNM Vaginal discharge (Primary Dx); Routine cervical smear; Screening examination for venereal disease; Abnormal uterine bleeding (AUB) 04/15/2025 Travel 01/29/2025 Results Follow-Up [facility] [address] [place] [phone] Shawna Levy MD Bacterial Vaginosis, Chlamydia/N. Gonorrhoeae RNA, TMA, Urogenitial, POCT urinalysis dipstick manually resulted, Additional followed-up results: 3 01/27/2025 1:00 PM EDT [facility] [address] [address] Shawna Levy MD Vaginal discharge from Last 3 Months Immunizations Immunization Administration Dates Next Due DTaP, 5 pertussis antigens 08/30/2005,,04/19/2001,02/20,2000 HPV 9-Valent 04/06/2016 HPV, Quadrivalent 10/28/2014,03/20/2012 Hep A, ped/adol, 2 dose 09/28/2017,04/06/2016 Hep B, Adolescent or Pediatric 04/19/2001,2000,2000 HiB, unspecified 01/08/2002, 1,01/31/2001,12/19 IPV 08/30/2005, 2,02/20/2001,12/19 Influenza Injectable Quadriv alant Preservative Free IIV4 MDCK 10/18/2018 Influenza injectable quadriv alent preservative free 09/28/2017,06/12/2016,08/03/2001 MMR 08/30/2005,10/16/2001 Meningococcal MCV4O 10/08/2017,03/20/2012 Pneumococcal Conjugate PCV 7 04/08/2003, 04/19/2001,02/20/2001,12/19 Tdap 11/10/2024,03/20/2012 Varicella 07/02/2013,04/18/2002 Social History Tobacco Use Types [...] (131 lb) 04/15/2025 10:12 AM EDT Height 154.9 cm (5' 1 ) 01/27/2025 12:55 PM EDT Body Mass Index 24.75 01/27/2025 12:55 PM EDT Plan of Treatment Health Maintenance Due Date Last Done Comments Disability Screening 2000 Pap Smear 11/09/2024 11/09/2021 COVID-19 Vaccine ( season) 2025 Influenza Vaccine (#1) 2025 , 10/18/2018, 09/28/2017, Additional history exists Depression Monitoring 10/13/2025 04/15/2025, 025 SDOH Screening 11/10/2025 11/10/2024 Tobacco Screening 11/10/2025 11/10/2024 Alcohol/Substance Use Screening 04/15/2026 04/15/2025 Family Planning (PISQ) 04/15/2026 04/15/2025 DTaP/Tdap/Td Vaccines (8 - Td or Tdap) 11/10/2034 11/10/2024, 03/20/2012, 08/30/2005, Additional history exists Zoster Vaccines (1 of 2) 2050 RSV Patients and Patients Aged 60 years or older (1 - 1-dose 75+ series) 10/07/2075 Hepatitis B Vaccines Completed 04/19/2001, 2000, 2000 HIB Vaccines Completed 01/08/2002, 03/31, 02/20/2001, Additional history exists Pneumococcal Vaccine: Pediatrics (0 to 5 Years) and At-Risk Patients (6 to 49) Years Aged Out 04/08/2003, 04/19/2001, 02/20/2001, Additional history exists No longer eligible based on patient's age to complete this topic IPV Vaccines Completed 08/30/2005, 09/28, 02/20/2001, Additional history exists HPV Vaccines Completed 04/06/2016, 0 07/2014, 03/20/2012 Hepatitis A Vaccines Completed 09/28/2017, 04/06/20 16 Meningococcal Vaccine Completed 10/08/2017 , 09/28/2017, 03/20/2012 HIV Screening Completed 01/27/2025, 03/2024, 06/27/2021 Hepatitis C Screening Completed 01/27/2025 , 09/07/2023, 06/27/2021 Meningococcal B Vaccine Aged Out No l onger eligible based on patient's age to complete this topic RSV under 20 months Aged Out No longe r eligible based on patient's age to complete this topic Rotavirus Vaccines Aged Out No longer eligible based on patient's age to complete this topic Procedures Procedure Name Priority Date/Time Associated Diagnosis Comments POCT WET MOUNT/LIBIA Routine 04/15/2025 10 :46 AM EDT Vaginal discharge RPR (MONITOR) W/REFL TITER Routine 01/27/2025 1:32 PM EDT Vaginal discharge HEPATITIS PANEL, GENERAL Routine 01/27/2025 1:22 PM EDT Vaginal discharge HIV 1/2 ANTIGEN/ANTIBODY, FOURTH GENERATION W/RFL Routine 01/27/2025 1:22 PM EDT Vaginal discharge POCT URINALYSIS DIPSTICK Routine 01/27/2025 1:08 PM EDT Vaginal discharge CHLAMYDIA/N. GONORRHOEAE RNA, TMA, UROGENITAL Routine 01/27/2025 1:00 PM EDT Vaginal discharge BACTERIAL VAGINOSIS PANEL Routine 01/27/2025 1:00 PM EDT Vaginal discharge THINPREP IMAGING SYSTEM PAP Routine 11/09/2021 3:43 PM EDT from Last 3 Months or Most Recently Relevant to Health Maintenance Results * POCT fern test, vaginal fluid manually resulted (04/15/2025 10:46 AM EDT) LIBIA Prep Negative Comment:pH 6, numerous rbc, limited due to that. Vaginal Fluid Vaginal structure / Unknown 04/15/2025 10:46 AM EDT Shaila Lynne CNM POINT OF CARE TEST ENTER/ EDIT ORDERABLES Final Result * RPR (Monitor) with Reflex to??Titer (01/27/2025 1:32 PM EDT) RPR (Monitor) w/Refl Titer NON-REACTI VE NON-REACT [facility] Comment:THIS TEST WAS PERFOR MED AT:[facility] [address] [phone] GREY MD Rapid Plasma Reagin Ab Titer TNP [facility] Blood Venous blood specimen / Unknown 01/27/2025 1:32 PM EDT 01/27/2025 4:08 PM EDT Shawna oBone MD LAB BLOOD ORDERABLES Final Result Performing Organization Address [facility] Co de Phone Number [facility] [address] [place] [phone] * Hepatitis A,B,C Profile (01/27/2025 1:22 PM EDT) Hepatitis A IgM Nonreactive Nonreactive [facility] Comment:IgM antibodies to DAIGLE V not detected; does not exclude earlyacute or recovered HAV infection. ~Hepatitis B Surface Antibody NONREACTIVE Nonreactive [facility] Comment:Nonreactive: < 8.00 mIU/mL Hepatitis B Core Antibody Nonreactive Nonreactive [facility] Hepatitis C Antibody Nonreactive Nonreactive [facility] Comment:Antibodies to HCV no t detected; does not exclude early acuteHCV infection. Hepatitis B Surface Ag Negative Negative [facility] Blood Venous blood specimen / Unknown 01/27/2025 1:22 PM EDT 01/27/2025 4:08 PM EDT us Shawna Boone MD LAB BLOOD ORDERABLES Final Result Performing Organization Address [facility] de Phone Number [facility] [address] [place] [phone] [phone] * HIV-1/2 Antigen and Antibodies, Fourth Generation, with Reflexes (01/27/2025 1:22 PM EDT) HIV AB/AG Nonreactive Nonreactive [facility] Comment:HIV-1 p24 Ag and/or HIV-1/HIV-2 Ab not detected.A test result that is nonreactive does not exclude thepossibility of exposure to or infection with HIV-1 and/orHIV-2. Nonreactive results in this assay for individualswith prior exposure to HIV-1 and/or HIV-2 may be due toantigen and antibody levels that are below the limit ofdetection of this assay.The Online [employer] HIV Ag/Ab Combo assay result andsupplemental assay results should be interpreted inconjunction with the patient's clinical presentation,history and other laboratory results. If the results areinconsistent with clinical evidence, additional testing issuggested to confirm the result. Blood Venous blood specimen / Unknown 01/27/2025 1:22 PM EDT 01/27/2025 4:08 PM EDT Shawna Boone MD LAB BLOOD ORDERABLES Final Result [facility] [address] [place] [address] [phone] * (ABNORMAL) POCT urinalysis dipstick manually [...] CARE TEST EN TER/EDIT ORDERABLES Final Result * (ABNORMAL) Bacterial Vaginosis (01/27/2025 1:00 PM EDT) TRICHOMONAS VAGINALIS DETECTION BY PCR NOT DETECTED Not Detect [facility] BACTERIAL VAGINOSIS DETECTION BY PCR POSITIVE(A) Negative [facility] Comment:The BV organism targ ets [...] DETECTION BY PCR NOT DETECTED Not Detect [facility] Tiffanie glab krusei PCR NOT DETECTED Not Detect [facility] Swab Vaginal structure / Unknown 01/27/2025 1:00 PM EDT 01/27/2025 4:12 PM EDT Shawna Boone MD LAB MICROBIOLOGY - NERAL ORDERABLES Final Result [facility] [address] [place] [phone] * Chlamydia/N. Gonorrhoeae RNA, TMA, Urogenitial (01/27/2025 1:00 PM EDT) CT PCR NOT DETECTED Not Detect. [facility] Comment:A not detected test result [...] psychologicalconsequences. NG PCR NOT DETECTED Not Detect. [facility] Comment:A not detected test result [...] or psychologicalconsequences. Swab Vaginal structure / Unknown 01/27/2025 1:00 PM EDT 01/27/2025 4:12 PM EDT Shawna Boone MD LAB MICROBIOLOGY - [facility] ORDERABLES Final Result [facility] [address] [place] [phone] * THINPREP TIS PAP (11/09/2021 3:43 PM EDT) Clinical Information: None given [facility] COMMENT SEE COMMENT [facility] Comment: EXPLANATORY NOTE: The Pap is a screening test for cervical cancer. It is not a diagnostic test and is subject to false negative and false positive results. It is most reliable when a satisfactory sample, regularly obtained, is submitted with relevant clinical findings and history, and when the Pap result is evaluated along with historic and current clinical information. COMMENT: This Pap test has been evaluated with computer assisted technology. [facility] Tread Cutter : SEE COMMENT [facility] Comment: MSM, CT(ASCP) CT screening location: [place] [address] Interpretation/R esult: Negative for intraepithelial lesion or malignancy. [email or web address] LMP: NONE [facility] Prev. BX: NONE [facility] Prev. PAP: NONE [facility] SOURCE: None given [facility] Statement Of Adequacy: SEE COMMENT [facility] Comment: Satisfactory for evaluation. Endocervical/transformation zone component present. Age and/or menstrual status not provided 11/09/2021 3:43 PM EDT Shaila Lynne CNM LAB PATHOLOGY ORDERABLES Final Result [facility] [address] [place] [address], from Last 3 Months or Most Recently Relevant to Health Maintenance Insurance [address] [place], [place] [address]NPS C3 Care Teams Floral Associate Relationship Specialty Start Date End Date Yamilex Horn NP [address] [place] [phone] PCP - General Family Medicine 01/22/24
--- OUTSIDE RECORDS SUMMARY | 2025-04-15 13:31 | XMS_ITS | Encounter Summary ---
Author Organization [employer] Address 75 [facility] 7t [place] [address] Care Team Providers Care Washing Machine Operator Name Role Phone Yamilex Horn TUBE CARRIER Primary Care Provider Encounter Details Date Type Department Care Team (Latest Contact Info) Description 04/15/2025 Travel Social History Tobacco Use Types Packs/Day [...] 10:47 AM EDT Ashley Medina MA * Poor appetite or overeating Answer Date of Assessment Author Several days 04/15/2025 10:47 AM EDT Ashley Medina MA * Feeling bad about yourself - or that you are a failure or have let yourself or your family down Answer Date of Assessment Author Not at all 04/15/2025 10:47 AM Ashley Casey MA * Trouble concentrating on things, such as reading the newspaper or watching television Answer Date of Assessment Author Not at all 04/15/2025 10:47 AM EDT Ashley Medina MA * Moving or speaking so slowly that other people could have noticed? Or the opposite - being so fidgety or restless that you have been moving around a lot more than usual. Answer Date of Assessment Author More than half the days 04/15/2025 10:47 AM EDAshley Valdez MA * Thoughts that you would be better off or hurting yourself in some way Answer Date of Assessment Author Not at all 04/15/2025 10:47 AM EDT Ashley Medina MA * Patient Health Questionnaire-9 Score Answer Date of Assessment Author 11 04/15/2025 10:47 AM EDT Ashley Medina MA * Over the last 2 weeks, how often have you been bothered by any of the following problems? Question Answer Date of Assessment Author Feeling nervous, anxious, or on edge 1 04/15/2025 10:48 AM EDT Ashley Medina MA Not being able to stop or co ntrol worrying 1 04/15/2025 10:48 AM EDT Ashley Medina MA Worrying too much about diff erent things 1 04/15/2025 10:48 AM EDT Ashley Medina MA Trouble relaxing 2 04/15/2025 10:48 AM EDT Ashley Medina MA Being so restless that it is hard to sit still 2 04/15/2025 10:48 AM EDT Ashley Medina MA Becoming easily annoyed or irritable 3 04/15/2025 10:48 AM EDT Ashley Medina MA Feeling afraid as if somethi ng awful might happen 0 04/15/2025 10:48 AM EDT Ashley Medina MA JOHN-7 Total Score 10 04/15/2025 10:48 AM EDT Ashley Medina MA documented as of this encounter Plan of Treatment Not on file documented as of this encounter Visit Diagnoses Not on filedocumented in this encounter Additional Health Concerns Assessment Noted Time PHQ-9 Depression Total Score: 11 025 10:47 AM EDT documented as of this encounter Care Teams Washing Machine Operator Relationship Specialty Start Date End Date Yamilex Horn NP [address] [place] [address] PCP - General Family Medicine 01/22/24 documented as of this encounter
--- OUTSIDE RECORDS SUMMARY | 2025-04-15 13:31 | XMS_ITS | Encounter Summary ---
Author Organization [employer] Address 75 [facility] 7t [place] [address] Care Team Providers Care Accounting Auditor Name Role Phone Yamilex Horn NP Primary Care Provider [phone] Reason for Visit * Reason Comments Med Refill Encounter Details Date Type Department Care Team (Late st Contact Info) Description 10/01/2024 Refill [facility] [address] [place] [address] [phone] Vega Alfonso MD [address] [place] [address] [phone] Bacterial vaginosis Social History Tobacco Use Types [...] vulvovaginitis documented in this encounter Care Teams Accounting Auditor Relationship Specialty Start Date End Date Yamilex Horn NP [address] [place] [phone] PCP - General Family Medicine 01/22/24 documented as of this encounter
--- OUTSIDE RECORDS SUMMARY | 2025-04-15 13:31 | XMS_ITS | Encounter Summary ---
Author Organization [employer] [facility] Address 75 [facility] 7 [place] [address] Care Team Providers Care Jacquard Fixer Name Role Phone Olya Shin Primary Care Provider Shikha FischerP Primary Care Provider [phone] Yamilex Horn MEDIA ASSISTANT Primary Care Provider [phone] Encounter Details Date Type Department Care Team (Latest Contact Info) Description 04/23/2019 Abstract [facility] CONVERSIONS Dental, Provider, DDS Social History Tobacco [...] on filedocumented in this encounter Care Teams Jacquard Fixer Relationship Specialty Start Date End Date Olya Shin FNP PCP - General Family Medicine 03/29/22 12/19/22 Shikha Moore FNP [address] [place] [phone] PCP - General Family Medicine 12/20/22 01/21/24 Yamilex Horn NP [address] [place] [phone] PCP - General Family Medicine 01/22/24 documented as of this encounter
[2025-04-16 04:44] LABS: Syphilis Screen Nonreactive (Nonreactive)
[2025-04-16 06:06] LABS: HIV Num 1 0.05 S/CO (0.00-0.99)
[2025-04-16 19:03] LABS: C. trachomatis RNA TMA NOT DETECTED (NOT DETECTED); N. gonorrhoeae RNA TMA NOT DETECTED (NOT DETECTED)
== END 2025-04-15 10:43 | disposition home or self-care (01) ==
LOC: HO.HHCL 10:42
PROVIDERS: PCP Internal Medicine; Visit Provider Advanced Practice Midwife
DX: Z11.3 Encounter for screening for infections with a predominantly sexual mode of transmission (principal); Z11.4 Encounter for screening for human immunodeficiency virus [HIV]
CPT/HCPCS: 36415; 86780; 87389; 87491; 87591; 87661; 88175

== ENCOUNTER 2025-06-01 18:13 | Outpatient (REF) | payer MEDICAID, SELFPAY ==
--- OUTSIDE RECORDS SUMMARY | 2025-06-01 10:40 | XMS_ITS | Encounter Summary ---
Author Organization [email or web address] Address [address] [facility] 7t [place] [address] Care Team Providers Care Shirring Machine Operator Automatic Name Role Phone Yamilex Horn TORRI Primary Care Provider Encounter Details Date Type Department Care Team (Late st Contact Info) Description 06/01/2025 10:40 AM EST Office Visit [facility] [address] [place] [phone] Screening for STDs (sexually transmitted diseases) (Primary Dx); Urinary frequency Social History Tobacco Use Types Packs/Day Years [...] Sign Reading Time Taken Comments Blood Pressure 129/71 06/01/2025 10:50 AM EST Pulse 111 06/01/2025 10:50 AM EST Temperature 37.1 C (98.7 F) 06/01/2025 10:50 AM EST Respiratory Rate 16 06/01/2025 10:5 0 AM EST Oxygen Saturation - - Inhaled Oxygen Concentration - - Weight 59.8 kg (131 lb 12.8 oz) 025 10:50 AM EST Height 162.6 cm (5' 4 ) 06/01/2025 10:5 0 AM EST Body Mass Index 22.62 06/01/2025 10:50 AM EST documented in this encounter Plan of Treatment Scheduled Orders Name Type Priority Associated Diagnoses Orde r Schedule Bacterial Vaginosis Microbiology Routine Screening for STDs (sexually transmitted diseases) Expected: 06/01/2025 (Approximate), Expires: 06/01/2026 HIV-1/2 Antigen and Antibodies, Fourth Generation, with Reflexes Lab Routine Screening for STDs (sexually transmitted diseases) Expected: 06/01/2025 (Approximate), Expires: 06/01/2026 Hepatitis Panel, General Lab Routine Screening for STDs (sexually transmitted diseases) Expected: 06/01/2025 (Approximate), Expires: 06/01/2026 Syphilis Screen Lab Routine Screening for STDs (sexually transmitted diseases) Expected: 06/01/2025 (Approximate), Expires: 06/01/2026 Chlamydia/N. Gonorrhoeae RNA, TMA, Urogenitial Microbiology Routine Screening for STDs (sexually transmitted diseases) Urinary frequency Ordered: 06/01/2025 Chlamydia/N. Gonorrhoeae RNA, TMA, Throat Microbiology Routine Screening for STDs (sexually transmitted diseases) Ordered: 06/01/2025 documented as of this encounter Procedures Procedure Name Priority Date/Time Associated Diagnosis Comments POCT URINALYSIS DIPSTICK Routine 06/01/2025 11:00 AM EST Urinary frequency documented in this encounter Results * (ABNORMAL) POCT Urinalysis (06/01/2025 11:00 AM EST) Color, UA Yellow Clarity, UA Clear Glucose, UA Negative Bilirubin, UA Negative Ketones, UA Negative Spec Grav, UA 1.030 Blood, UA Positive(A) Negative, None Detected Comment:moderate pH, UA 5.5 Protein, UA Trace Urobilinogen, UA 0.2 Leukocytes, UA Negative Negative, Rare, Trace Nitrite, UA Negative Negative, None Detected Appearance, UA clear QC Media Lot # [id number] Lot# Expiration Date Urine (Urine, Random) 06/01/2025 11:00 AM EST Celia Walter MD POINT OF CARE TEST ENTER /EDIT ORDERABLES Final Result documented in this encounter Visit Diagnoses Diagnosis Screening for STDs (sexually transmitted diseases)- Primary Screening examination for venereal disease Urinary frequency documented in this encounter Additional Health Concerns Assessment Noted Time PHQ-9 Depression Total Score: 11 025 10:47 AM EDT documented as of this encounter Care Teams Shirring Machine Operator Automatic Relationship Specialty Start Date End Date Yamilex Horn NP [address] [place] [phone] PCP - General Family Medicine 01/22/24 documented as of this encounter
--- OUTSIDE RECORDS SUMMARY | 2025-06-01 18:15 | XMS_ITS | Encounter Summary ---
Author Organization [employer] [facility] Address [address] [place] [address] 7 h Floor [place] [phone] Care Team Providers Care Mechanical Equipment Sales Engineer Name Role Phone Yamilex Horn NP Primary Care Provider [phone] Encounter Details Date Type Department Care Team (Late st Contact Info) Description 05/29/2024 Telephone [facility] [address] [place] [address] Yamilex Horn NP [address] [place] [address] Social History Tobacco Use Types Packs/Day Years [...] on filedocumented in this encounter Care Teams Mechanical Equipment Sales Engineer Relationship Specialty Start Date End Date Yamilex Horn NP [address] [place] [address] PCP - General Family Medicine 01/22/24 documented as of this encounter
--- OUTSIDE RECORDS SUMMARY | 2025-06-01 18:15 | XMS_ITS | Encounter Summary ---
Author Organization [employer] [facility] Address 75 [facility] 7 [place] [address] Care Team Providers Care Dispute Resolution Specialist Name Role Phone Olya Shin Primary Care Provider Shikha FischerP Primary Care Provider [phone] Yamilex Horn FAGOT MAKER Primary Care Provider [phone] Encounter Details Date Type Department Care Team (Latest Contact Info) Description 04/23/2019 Abstract [facility] CONVERSIONS Dental, Provider, DDS Social History Tobacco [...] on filedocumented in this encounter Care Teams Dispute Resolution Specialist Relationship Specialty Start Date End Date Olya Shin FNP PCP - General Family Medicine 03/29/22 12/19/22 Shikha Moore FNP [address] [place] [phone] PCP - General Family Medicine 12/20/22 01/21/24 Yamilex Horn NP [address] [place] [phone] PCP - General Family Medicine 01/22/24 documented as of this encounter
--- OUTSIDE RECORDS SUMMARY | 2025-06-01 18:15 | XMS_ITS | Encounter Summary ---
Author Organization [employer] Address [address] [facility] 7t [place] [address] Care Team Providers Care Angiographer Name Role Phone Yamilex Horn NP Primary Care Provider [phone] Reason for Visit * Reason Comments Med Refill Encounter Details Date Type Department Care Team (Late st Contact Info) Description 10/01/2024 Refill [facility] [address] [place] [address] [phone] Vega Alfonso MD [address] [place] [address] [phone] Bacterial vaginosis Social History Tobacco Use Types [...] vulvovaginitis documented in this encounter Care Teams Angiographer Relationship Specialty Start Date End Date Yamilex Horn NP [address] [place] [phone] PCP - General Family Medicine 01/22/24 documented as of this encounter
--- OUTSIDE RECORDS SUMMARY | 2025-06-01 18:15 | XMS_ITS | Encounter Summary ---
Author Organization [employer] Address 75 [facility] 7t [place] [address] Care Team Providers Care Field Cashier Name Role Phone Yamilex Horn TIRE VULCANIZER Primary Care Provider [phone] Reason for Visit * Reason Comments Med Refill Encounter Details Date Type Department Care Team (Late st Contact Info) Description 11/07/2024 Refill [facility] [address] [place] [address] [phone] Vega Alfonso MD [address] [place], [place] [phone] Bacterial vaginosis Social History Tobacco Use Types [...] vulvovaginitis documented in this encounter Care Teams Field Cashier Relationship Specialty Start Date End Date Yamilex Horn NP [address] [place] [phone] PCP - General Family Medicine 01/22/24 documented as of this encounter
--- OUTSIDE RECORDS SUMMARY | 2025-06-01 18:15 | XMS_ITS | Clinical Summary ---
Author Organization [employer] Address [address] [facility] [employer] 7t h Floor [place] [phone] Care Team Providers Care Neurology Technician Name Role Phone Yamilex Horn TORRI Primary Care Provider [phone] Allergies No known active allergies Medications hydrOXYzine [...] hours x 7 days 63 tablet 04/15/2025 05/06/20 25 Active Problems Problem Noted Date Diagnosed Date Screening for STDs (sexually transmitted disease s) 06/01/2025 Vaginal discharge 01/05/2023 Assessment & Plan (01/27/2025 [...] Encounters Date Type Department Care Team Description 06/01/2025 10:40 AM EST Office Visit [facility] [address] [place] [phone] Screening for STDs (sexually transmitted diseases) (Primary Dx); Urinary frequency 04/23/2025 Results Follow-Up [facility] [address] [place] [address] Jennifer Mays CNM Pap Smear, STI testing add on (NG, CT, Trich), HIV-1/2 Antigen and Antibodies, Fourth Generation, with Reflexes, Syphilis Screen 04/15/2025 10:00 AM EDT Office Visit [facility] [address] [place] [phone] Jennifer Mays CNM Vaginal discharge (Primary Dx); Routine cervical smear; Screening examination for venereal disease; Abnormal uterine bleeding (AUB) 04/15/2025 Travel from Last 3 Months Immunizations Immunization Administration [...] 06/01/2025 10:5 0 AM EST Oxygen Saturation 97% 04/15/2025 10: 12 AM EDT Inhaled Oxygen Concentration - - Weight 59.8 kg (131 lb 12.8 oz) 025 10:50 AM EST Height 162.6 cm (5' 4 ) 06/01/2025 10:5 0 AM EST Body Mass Index 22.62 06/01/2025 10:50 AM EST Plan of Treatment Health Maintenance Due Date Last Done Comments Disability Screening 2000 COVID-19 Vaccine ( season) 2025 Influenza Vaccine (#1) 2025 , 10/18/2018, 09/28/2017, Additional history exists Depression Monitoring 10/13/2025 04/15/2025, 025 SDOH Screening 11/10/2025 11/10/2024 Alcohol/Substance Use Screening 04/15/2026 04/15/2025 Family Planning (PISQ) 04/15/2026 04/15/2025 Tobacco Screening 06/01/2026 06/01/2025 Pap Smear 04/15/2028 04/15/2025, 11/09/2021 DTaP/Tdap/Td Vaccines (8 - Td or Tdap) [...] Additional history exists HPV Vaccines Completed 04/06/2016, 040 07/2014, 03/20/2012 Hepatitis A Vaccines Completed 09/28/2017, 04/06/20 16 Meningococcal Vaccine Completed 10/08/2017 , 09/28/2017, 03/20/2012 Hepatitis C Screening Completed 01/27/2025 , 09/07/2023, 06/27/2021 HIV Screening Completed 04/15/2025, 070 07/2024, 09/07/2023, Additional history exists Meningococcal B Vaccine Aged Out No l [...] Routine 06/01/2025 11:00 AM EST Urinary frequency CHLAMYDIA/N. GONORRHOEAE AND T. VAGINALIS RNA, QUAL,TMA Routine 04/15/2025 6:45 PM EDT Screening examination for venereal disease SYPHILIS SCREEN Routine 04/15/2025 11:12 AM EDT Screening examination for venereal disease HIV 1/2 ANTIGEN/ANTIBODY, FOURTH GENERATION W/RFL Routine 04/15/2025 11:12 AM EDT Screening examination for venereal disease PAP SMEAR Routine 04/15/2025 11:10 AM EDT Routine cervical smear POCT WET MOUNT/LIBIA Routine 04/15/2025 10 :46 AM EDT Vaginal discharge HEPATITIS PANEL, GENERAL Routine 01/27/2025 1:22 PM EDT Vaginal discharge from Last 3 Months or Most Recently Relevant to Health Maintenance Results * (ABNORMAL) POCT Urinalysis (06/01/2025 11:00 [...] CARE TEST ENTER /EDIT ORDERABLES Final Result * STI testing add on (NG, CT, Trich) (04/15/2025 6:45 PM EDT) Pathologist [facility] Trichomonas (NAAT) NOT DETECTED [facility] CTNG Ref Lab NOT DETECTED NOT DETECTED [facility] NG Ref Lab NOT DETECTED NOT DETECTED [facility] ThinPrep vial Cervix uteri structure / Unknown 04/15/2025 6:45 PM EDT 04/15/2025 6:47 PM EDT Narrative [facility] - 04/22/2025 11:36 AM EDT Collection Date: [id number] by: JULIA Reich: [facility] LAB CYTOLOGY ORDERABLES F inal Result Performing Organization Address [facility]/ZIP Co de Phone Number [facility] [address] [place] [phone] * Syphilis Screen (04/15/2025 11:12 AM EDT) Pathologist [facility] Syphilis Screen Nonreactive Nonreactive [facility] Blood Venous blood specimen / Unknown 04/15/2025 11:12 AM EDT 04/15/2025 1:16 PM EDT [facility] LAB BLOOD ORDERABLES Carola l Result Performing Organization Address [facility]/ZIP Co de Phone Number [facility] [address] [place] [phone] * HIV-1/2 Antigen and Antibodies, Fourth Generation, with Reflexes (04/15/2025 11:12 AM EDT) Pathologist [facility] HIV AB/AG Nonreactive Nonreactive [facility] Comment:HIV-1 p24 Ag and/or HIV-1/HIV-2 Ab not detected.A test result that is nonreactive does not exclude thepossibility of exposure to or infection with HIV-1 and/orHIV-2. Nonreactive results in this assay for individualswith prior exposure to HIV-1 and/or HIV-2 may be due toantigen and antibody levels that are below the limit ofdetection of this assay.The [employer] AliniTune HIV Ag/Ab Combo assay result andsupplemental assay results should be interpreted inconjunction with the patient's clinical presentation,history and other laboratory results. If the results areinconsistent with clinical evidence, additional testing issuggested to confirm the result. Blood Venous blood specimen / Unknown 04/15/2025 11:12 AM EDT 04/15/2025 1:16 PM EDT us Jennifer Mays CNM LAB BLOOD ORDERABLES Caorla tsai Result [facility] [address] [place] [phone] * Pap Smear (04/15/2025 11:10 AM EDT) Swab 04/15/2025 11:1 0 AM EDT 04/16/2025 7:46 AM EDT Narrative [facility] - 04/20/2025 9:29 AM EDT ----- ------- Name: Malika Varma Age/Sex: 24/F : 2000 Unit#: [id number] Attend Dr: JENNIFER MAYS CNM Re04/15/25 Status: DEP REF Location: [facility] Disch: ----- ------- SPEC : [id number] RECD: 04/16/25 STATUS: MERLY BRITO NUM: [id number] MOY: 04/15/25-[address]: JENNIFER MAYS [facility] ENTERED: 04/16/25 SP TYPE: Pap Smr OTHR DR: Shawna Levy MD ORDERED: Pap Smear Interpretation Satisfactory for evaluation. Negative for intraepithelial lesion or malignancy. No endocervical cells seen. Scant cellularity. Abundant blood. Clinical Information LMP: Unknown date, implantable control Previous PAP test: 2021, NIL Other history: Routine cervical smear Material Received ThinPrep-Vaginal/Cervical PAP Disclaimer As of May 21, 2024, the technical services to include automated prescreening performed by the ThinPrep Imaging System, PAP screening and HPV testing will be performed at [facility] (CLIA #[id number]), [address] [place] [address]. Testing for HPV was performed using the Tacho BRENDAN 6800 system. The presence of HPV in the female genital tract is associated with a number of diseases, including cervical carcinoma. The HPV DNA high risk pool tests for HPV 31, 33, 35, 39, 45, 51, 52, 56, 58, 59, 66 and 68. The testing for HPV 16 and 18 genotypes has also been performed. A positive result indicates detection of nucleic acid sequences from one or more subtypes, whereas a negative result indicates such sequences were not detected. All professional services are performed by [facility] ([address] [place] [address]; ; CLIA #[id number]). The PAP Test is a screening procedure with the inherent possibility of both false negative and false positive results. Results should be interpreted in the context of historic and current clinical findings. Reliability of the PAP Test is enhanced by performing the test on a regular repetitive basis. Copies To: [place] [address] CONTINUED ON NEXT PAGE ----- ------- Name: Malika Varma Age/Sex: 24/ : 2000 Unit#: [id number] Attend Dr: JENNIFER MAYS Re04/15/25 Status: DEP REF Location: [facility] Disch: ----- ------- SPEC : [id number] RECD: 04/16/25 STATUS: MERLY BRITO NUM: [id number] MOY: 04/15/25-110[address] [facility] DR: JENNIFER MAYS ENTERED: 04/16/25 SP TYPE: Pap Smr JANIE DR: Shawna Levy MD ORDERED: Pap Smear Copies To: (Continued) JENNIFER MAYS [address] [place] [address] ----- ------- Signed (signature on file) GANGA Hardy ([facility]) 04/20/25 0929 ----- ------- END OF REPORT Jennifer BEAN LAB CYTOLOGY ORDERABLES F inal Result [facility] [address] [place] [phone] * POCT fern test, vaginal fluid manually resulted (04/15/2025 10:46 AM EDT) LIBIA Prep Negative Comment:pH 6, numerous rbc, limited due to that. Vaginal Fluid Vaginal structure / Unknown 04/15/2025 10:46 AM EDT Jennifer Mays [facility] POINT OF CARE TEST ENTER/ EDIT ORDERABLES Final Result * Hepatitis A,B,C Profile (01/27/2025 1:22 PM EDT) Hepatitis A IgM Nonreactive Nonreactive [facility] Comment:IgM antibodies to DAIGLE V not detected; does not exclude earlyacute or recovered HAV infection. ~Hepatitis B Surface Antibody NONREACTIVE Nonreactive [facility] Comment:Nonreactive: < 8.00 mIU/mL Hepatitis B Core Antibody Nonreactive Nonreactive [facility] Hepatitis C Antibody Nonreactive Nonreactive [facility] Comment:Antibodies to HCV no t detected; does not exclude early acuteHCV infection. Hepatitis B Surface Ag Negative Negative [facility] Blood Venous blood specimen / Unknown 01/27/2025 1:22 PM EDT 01/27/2025 4:08 PM EDT Shawna Boone MD LAB BLOOD ORDERABLES Final Result [facility] [address] [place] [phone] from Last 3 Months or Most Recently Relevant to Health Maintenance [place] [address] [place] [address] C3 Care Teams Neurology Technician Relationship Specialty Start Date End Date Yamilex Horn NP [address] [place] [phone] PCP - General Family Medicine 01/22/24
[2025-06-02 00:43] LABS: Bacterial Vaginosis PCR NEGATIVE (Negative); Candida Group PCR NOT DETECTED (Not Detect); Candida glab krusei PCR NOT DETECTED (Not Detect); Trichomonas vaginalis PCR NOT DETECTED (Not Detect)
[2025-06-02 01:14] LABS: CT PCR NOT DETECTED (Not Detect.); NG PCR NOT DETECTED (Not Detect.)
[2025-06-05 15:48] LABS: C. Trachomatis RNA TMA, Throat NOT DETECTED; N. gonorrhoeae RNA TMA, Throat NOT DETECTED
== END 2025-06-01 18:14 | disposition home or self-care (01) ==
LOC: HO.HHCLNP 18:13
PROVIDERS: Visit Provider Internal Medicine
DX: Z20.2 Contact with and (suspected) exposure to infections with a predominantly sexual mode of transmission (principal); R35.0 Frequency of micturition
CPT/HCPCS: 81515; 87491; 87591

== ENCOUNTER 2025-06-18 09:43 | Outpatient (REF) | payer MEDICAID, SELFPAY ==
[2025-06-18 12:21] LABS: Syphilis Screen Nonreactive (Nonreactive)
[2025-06-18 12:22] LABS: HBS Num1 1.75 mIU/mL (0-7.99); HBc Num1 0.10 S/CO (0.00-0.79); HBsAGNum1 0.40 S/CO (0.00-0.99); HIV Num 1 0.09 S/CO (0.00-0.99); Hepatitis A Antibody IgM 0.21 Index (0-0.79); Hepatitis B Surface Antigen Negative (Negative); ~HepC Num1 0.20 S/CO (0.00-0.79); ~Hepatitis A Antibody IgM Nonreactive (Nonreactive); ~Hepatitis B Surface Antibody NONREACTIVE (Nonreactive); ~Hepatitis C Antibody Nonreactive (Nonreactive)
--- OUTSIDE RECORDS SUMMARY | 2025-06-18 13:48 | XMS_ITS | Encounter Summary ---
Author Organization [employer] Address [address] [facility] 7 [place] [address] Care Team Providers Care Trailer Steerer Name Role Phone Olya Shin Primary Care Provider Shikha FischerP Primary Care Provider [phone] Yamilex Horn FUR REPAIR INSPECTOR Primary Care Provider [phone] Encounter Details Date Type Department Care Team (Latest Contact Info) Description 04/23/2019 Abstract [facility] CONVERSIONS Dental, Provider, DDS Social History [...] on filedocumented in this encounter Care Teams Trailer Steerer Relationship Specialty Start Date End Date Olya Shin FNP PCP - General Family Medicine 03/29/22 12/19/22 Shikha Moore FNP [address] [place] [phone] PCP - General Family Medicine 12/20/22 01/21/24 Yamilex Horn NP [address] [place] [phone] PCP - General Family Medicine 01/22/24 documented as of this encounter
--- OUTSIDE RECORDS SUMMARY | 2025-06-18 13:48 | XMS_ITS | Encounter Summary ---
Author Organization [facility] Address [address] [place] [address] 7 h Floor [place] [phone] Care Team Providers Care Traffic And Transport Planner Name Role Phone Yamilex Horn NP Primary Care Provider [phone] Encounter Details Date Type Department Care Team (Late st Contact Info) Description 05/29/2024 Telephone [facility] [address] [place] [address] Yamilex Horn NP [address] [place] [address] Social History Tobacco Use Types Packs/Day Years [...] on filedocumented in this encounter Care Teams Traffic And Transport Planner Relationship Specialty Start Date End Date Yamilex Horn NP [address] [place] [phone] PCP - General Family Medicine 01/22/24 documented as of this encounter
--- OUTSIDE RECORDS SUMMARY | 2025-06-18 13:48 | XMS_ITS | Encounter Summary ---
Author Organization [employer] Address [address] [facility] 7t [place] [address] Care Team Providers Care Security Clerk Name Role Phone Yamilex Horn REPA[employer] Primary Care Provider [phone] Encounter Details Date Type Department Care Team (Late st Contact Info) Description 06/02/2025 Results Follow-Up [facility] [address] [place], [place] [phone] Celia Walter MD [address] [place], [place] [phone] Bacterial Vaginosis Social History Tobacco Use Types Packs/Day Years [...] documented as of this encounter Care Teams Security Clerk Relationship Specialty Start Date End Date Yamilex Horn NP [address] [place] [phone] PCP - General Family Medicine 01/22/24 documented as of this encounter
--- OUTSIDE RECORDS SUMMARY | 2025-06-18 13:49 | XMS_ITS | Clinical Summary ---
Author Organization [email or web address] Address [address] [facility] [address] [place] [address] Care Team Providers Care Record Producer Name Role Phone Yamilex Horn TORRI Primary Care Provider [phone] Allergies No known active allergies Medications hydrOXYzine HCl (Atarax) 25 MG tabletIndicatio ns:Difficulty sleeping Take 1-2 tablets by oral route as needed up to four times daily for anxiety 90 tablet 1 11/10/2024 Active Active Problems Problem Noted Date Diagnosed Date Screening for STDs (sexually transmitted disease s) 06/01/2025 Assessment & Plan (06/02/2025 2:57 PM EST): We discussed with patient regarding protected intercourse, use of condom or oral labs as appropriate. We discussed about as needed testing at the [facility] for her partner if needed. Will check CT chlamydia both pharyngeal and vaginal + vaginal trichomonas + BV and follow-up results as needed. Patient declined to be tested for HIV, syphilis and hepatitis. I told her that she is at risk every time she has unprotected sex so I suggested to check within 30 and 90 days after last unprotected intercourse. We discussed about PrEP but she is not interested at this time. Vaginal discharge 01/05/2023 Assessment & Plan (01/27/2025 [...] Encounters Date Type Department Care Team Description 06/02/2025 Results Follow-Up [facility] [address] [place] [phone] Celia Walter MD Bacterial Vaginosis 06/01/2025 10:40 AM EST Office Visit [facility] [address] [place] [address] [phone] Celia Walter MD Screening for STDs (sexually transmitted diseases) (Primary Dx); Urinary frequency 06/01/2025 Orders Only [facility] [address] [place] [address] [phone] Celia Walter MD 04/23/2025 Results Follow-Up [address] [address] Jennifer Mays CNM Pap Smear, STI testing add on (NG, CT, Trich), HIV-1/2 Antigen and Antibodies, Fourth Generation, with Reflexes, Syphilis Screen 04/15/2025 10:00 AM EDT Office Visit [facility] [address] [place] [phone] Jennifer Mays CNM Vaginal discharge (Primary Dx); [...] complete this topic IPV Vaccines Completed 08/30/2005, 2 , 02/20/2001, Additional history exists HPV Vaccines Completed 04/06/2016, 04/0 07/2014, 03/20/2012 Hepatitis A Vaccines Completed 09/28/2017, 04/06/20 16 Meningococcal Vaccine Completed 10/08/2017 , 09/28/2017, 03/20/2012 Hepatitis C Screening Completed 06/18/2025 , 01/27/2025, 09/07/2023, Additional history exists HIV Screening Completed 06/18/2025, 03/30, 01/27/2025, Additional history exists Meningococcal B Vaccine Aged Out No l onger eligible based on patient's age to complete this topic RSV under 20 months Aged Out No longe r eligible based on patient's age to complete this topic Rotavirus Vaccines Aged Out No longer eligible based on patient's age to complete this topic Procedures Procedure Name Priority Date/Time Associated Diagnosis Comments SYPHILIS SCREEN Routine 06/18/2025 9:47 AM EST Screening for STDs (sexually transmitted diseases) HEPATITIS PANEL, GENERAL Routine 06/18/2025 9:47 AM EST Screening for STDs (sexually transmitted diseases) HIV 1/2 ANTIGEN/ANTIBODY, FOURTH GENERATION W/RFL Routine 06/18/2025 9:47 AM EST Screening for STDs (sexually transmitted diseases) BACTERIAL VAGINOSIS PANEL Routine 06/01/2025 11:23 AM EST CHLAMYDIA/N. GONORRHOEAE RNA, TMA, THROAT Routine 06/01/2025 11:23 AM EST Screening for STDs (sexually transmitted diseases) CHLAMYDIA/N. GONORRHOEAE RNA, TMA, UROGENITAL Routine 06/01/2025 11:23 AM EST Screening for STDs (sexually transmitted diseases) Urinary frequency POCT URINALYSIS DIPSTICK Routine 06/01/2025 11:00 AM [...] 04/15/2025 10 :46 AM EDT Vaginal discharge from Last 3 Months Results * Syphilis Screen (06/18/2025 9:47 AM EST) Only the most recent of2 resultswithin the time period is included. Syphilis Screen Nonreactive Nonreactive [facility] Blood 06/18/2025 9:47 AM EST 06/18/2025 11:10 AM EST Celia Walter MD LAB BLOOD ORDERABLES Fin al Result [facility] [address] [place] [address] [phone] * Hepatitis Panel, General (06/18/2025 9:47 AM EST) Hepatitis A IgM Nonreactive Nonreactive [facility] Comment:IgM antibodies to DAIGLE V not detected; does not exclude earlyacute or recovered HAV infection. ~Hepatitis B Surface Antibody NONREACTIVE Nonreactive [facility] Comment:Nonreactive: < 8.00 mIU/mL Hepatitis B Core Antibody Nonreactive Nonreactive [facility] Hepatitis C Antibody Nonreactive Nonreactive [facility] Comment:Antibodies to HCV no t detected; does not exclude early acuteHCV infection. Hepatitis B Surface Ag Negative Negative [facility] Blood 06/18/2025 9:47 AM EST 06/18/2025 11:10 AM EST Celia Walter MD LAB BLOOD ORDERABLES Fin al Result [facility] [address] [place] [phone] * HIV-1/2 Antigen and Antibodies, Fourth Generation, with Reflexes (06/18/2025 9:47 AM EST) Only the most recent of2 resultswithin the time period is included. HIV AB/AG Nonreactive Nonreactive [facility] Comment:HIV-1 p24 Ag and/or HIV-1/HIV-2 Ab not detected.A test result that is nonreactive does not exclude thepossibility of exposure to or infection with HIV-1 and/orHIV-2. Nonreactive results in this assay for individualswith prior exposure to HIV-1 and/or HIV-2 may be due toantigen and antibody levels that are below the limit ofdetection of this assay.[employer] HIV Ag/Ab Combo assay result andsupplemental assay results should be interpreted inconjunction with the patient's clinical presentation,history and other laboratory results. If the results areinconsistent with clinical evidence, additional testing issuggested to confirm the result. Blood Venous blood specimen / Unknown 06/18/2025 9:47 AM EST 06/18/2025 11:10 AM EST Celia Walter MD LAB BLOOD ORDERABLES Fin al Result Performing Organization Address City/[facility]/ZIP Co de Phone Number [facility] [address] [place] [phone] [phone] * Bacterial Vaginosis (06/01/2025 11:23 AM EST) TRICHOMONAS VAGINALIS DETECTION BY PCR NOT DETECTED Not Detect [facility] BACTERIAL VAGINOSIS DETECTION BY PCR NEGATIVE Negative [facility] Comment:The BV organism targ ets [...] DETECTION BY PCR NOT DETECTED Not Detect [facility] Tiffanie glab krusei PCR NOT DETECTED Not Detect [facility] 06/01/2025 11:2 3 AM EST 06/01/2025 6:36 PM EST Celia Walter MD LAB MICROBIOLOGY - GENER AL ORDERABLES Final Result [facility] [address] [place] [phone] * Chlamydia/N. Gonorrhoeae RNA, TMA, Throat (06/01/2025 11:23 AM EST) C. Trachomatis RNA TMA, Throat NOT DETECTED [facility] N. gonorrhoeae RNA TMA, Throat NOT DETECTED [facility] Comment:REFERENCE RANGE: NOT DETECTEDMethodology: Bioprocessing Manufacturing Technician Mediated Amplification (TMA) to detect RNA.The analytical performance characteristics of this assayhave been determined by [employer]. The modificationshave not been cleared or approved by the FDA. This assay hasbeen validated pursuant to the CLIA regulations and is usedfor clinical purposes.For additional information, please refer tohttps://education.[employer].Boxcar/faq/BUX274(This link is being provided for informational/educationalpurposes only.)THIS TEST WAS PERFORMED AT:[id number] [id number] GONZALES MD,PHD,AGUSTINA Swab Throat swab / Unknown 06/01/2025 11:23 AM EST 06/01/2025 6:14 PM EST us Celia Walter MD LAB MICROBIOLOGY - GENER AL ORDERABLES Final Result [facility] [address] [place] [phone] * Chlamydia/N. Gonorrhoeae RNA, TMA, Urogenitial (06/01/2025 11:23 AM EST) CT PCR NOT DETECTED Not Detect. [facility] Comment:A not detected test result [...] psychologicalconsequences. NG PCR NOT DETECTED Not Detect. [facility] Comment:A not detected test result [...] or psychologicalconsequences. Swab Vaginal structure / Unknown 06/01/2025 11:23 AM EST 06/01/2025 6:42 PM EST Celia Walter MD LAB MICROBIOLOGY - GENER AL ORDERABLES Final Result Performing Organization Address [facility]/ZIP Co de Phone Number [facility] [address] [place] [phone] * (ABNORMAL) POCT Urinalysis (06/01/2025 11:00 AM [...] (NG, CT, Trich) (04/15/2025 6:45 PM EDT) Trichomonas (NAAT) NOT DETECTED [facility] CTNG Ref Lab NOT DETECTED NOT DETECTED [facility] NG Ref Lab NOT DETECTED NOT DETECTED [facility] ThinPrep vial Cervix uteri structure / Unknown 04/15/2025 6:45 PM EDT 04/15/2025 6:47 PM EDT Narrative [facility] - 04/22/2025 11:36 AM EDT Collection Date: [id number] by: JULIA Reich: Cervix Jennifer Mays CNM LAB CYTOLOGY ORDERABLES F inal Result Performing Organization Address City/[facility]/ZIP Co de Phone Number [facility] [address] [place] [phone] * Pap Smear (04/15/2025 11:10 AM EDT) Swab 04/15/2025 11:1 0 AM EDT 04/16/2025 7:46 AM EDT [facility] - 04/20/2025 9:29 AM EDT ----- ------- Name: Malika Varma Age/Sex: 24/F : 2000 Unit#: [id number] Attend Dr: JENNIFER MAYS CNM Re04/15/25 Status: [facility] REF Location: [facility] Disch: ----- ------- SPEC : [id number] RECD: 04/16/25 STATUS: MERLY BRITO NUM: [id number] MOY: 04/15/25-[address] [facility] [address]: JENNIFER MAYS CNM ENTERED: 04/16/25 SP TYPE: Pap Smr OTHR [...] and HPV testing will be performed at [facility] (CLIA #[id number]), [address] [place] [address]. Testing for HPV was performed using the [employer] BRENDAN 6800 system. The presence of HPV [...] detected. All professional services are performed by [facility] ([address] [place] [address]; ; CLIA #[id number]). The PAP Test is a screening procedure with the inherent possibility of both false negative and false positive results. Results should be interpreted in the context of historic and current clinical findings. Reliability of the PAP Test is enhanced by performing the test on a regular repetitive basis. Copies To: Shawna Levy MD [address] [address] CONTINUED ON NEXT PAGE ----- ------- Name: Manav Varmapatrick Age/Sex: 24/F : 2000 Unit#: [id number] Attend Dr: JENNIFER MAYS CNM Re04/15/25 Status: DEP REF Location: [facility] Disch: ----- ------- SPEC : [id number] RECD: 04/16/25 STATUS: MERLY BRITO NUM: [id number] MOY: 04/15/25-[address]: JENNIFER MAYS CNM ENTERED: 04/16/25 SP TYPE: Pap Smr OTHR DR: Shawna Levy MD ORDERED: Pap Smear Copies To: (Continued) JENNIFER MAYS CNM [address] [place], [place] [phone] ----- ------- Signed (signature on file) GANGA Hardy (ASCP) 04/20/25928 ----- ------- END OF REPORT us Jennifer Mays CNM LAB CYTOLOGY ORDERABLES F inal Result [facility] [address] [place] [phone] * POCT fern test, vaginal fluid manually resulted (04/15/2025 10:46 AM EDT) [facility] Prep Negative Comment:pH 6, numerous rbc, limited due to that. Vaginal Fluid Vaginal structure / Unknown 04/15/2025 10:46 AM EDT Jennifer Mays CN POINT OF CARE TEST ENTER/ EDIT ORDERABLES Final Result from Last 3 Months Insurance Care Teams Record Producer Relationship Specialty Start Date End Date Yamilex Horn NP [address] [place] [phone] PCP - General Family Medicine 01/22/24
--- OUTSIDE RECORDS SUMMARY | 2025-06-18 13:49 | XMS_ITS | Encounter Summary ---
Author Organization [employer] Address [address] [facility] [address] [place] [address] Care Team Providers Care Spring Former Machine Name Role Phone Yamilex Horn PLASTICS ENGINEER Primary Care Provider [phone] Reason for Visit * Reason Comments Med Refill Encounter Details Date Type Department Care Team (Late st Contact Info) Description 11/07/2024 Refill [facility] [address] [place] [address] [phone] Vega Alfonso MD [address] [place], [place] [phone] Bacterial vaginosis Social History Tobacco Use Types [...] vulvovaginitis documented in this encounter Care Teams Spring Former Machine Relationship Specialty Start Date End Date Yamilex Horn NP [address] [place] [phone] PCP - General Family Medicine 01/22/24 documented as of this encounter
--- OUTSIDE RECORDS SUMMARY | 2025-06-18 13:49 | XMS_ITS | Encounter Summary ---
Author Organization [employer] Address [address] [facility] 7t [place] [address] Care Team Providers Care Guest Services Officer Name Role Phone Yamilex Horn NP Primary Care Provider [phone] Reason for Visit * Reason Comments Med Refill Encounter Details Date Type Department Care Team (Late st Contact Info) Description 10/01/2024 Refill [facility] [address] [place] [address] [phone] Vega Alfonso MD [address] [place] [address] [phone] Bacterial vaginosis Social History Tobacco Use Types [...] vulvovaginitis documented in this encounter Care Teams Guest Services Officer Relationship Specialty Start Date End Date Yamilex Horn NP [address] [place] [phone] PCP - General Family Medicine 01/22/24 documented as of this encounter
== END 2025-06-18 09:44 | disposition home or self-care (01) ==
LOC: HO.HHCL 09:43
PROVIDERS: PCP Internal Medicine; Visit Provider Internal Medicine
DX: Z11.3 Encounter for screening for infections with a predominantly sexual mode of transmission (principal); Z11.4 Encounter for screening for human immunodeficiency virus [HIV]; Z11.59 Encounter for screening for other viral diseases
CPT/HCPCS: 36415; 86704; 86706; 86709; 86780; 86803; 87340; 87389